=== PATIENT | male | born 1965 | race Hispanic/Latino ===

== ENCOUNTER 2017-12-16 09:53 | Emergency (ER) | payer OTHER, SELFPAY ==
--- NOTE | 2017-12-16 10:51 | RAD REPORT ---
EXAM DESCRIPTION: RAD - Chest Pa And Lat (2 Views) - 12/16/2017 10:45 am CLINICAL HISTORY: Persistent cough COMPARISON: May 2015 TECHNIQUE: PA and lateral views of the chest were obtained. FINDINGS: The lungs are clear of failure, infiltrate or mass. Chronic interstitial lung disease is p resent, mild in degree, and without change from May 2015. Heart size is normal and central vasc ulature is within normal limits. No pleural effusion or pneumothorax seen. No acute bony finding no екатерина. No aortic abnormality. IMPRESSION: No acute cardiopulmonary process. No significant change from 2016.
--- NOTE | 2017-12-16 11:20 | EDPHYS ---
Physician Documentation [facility] Name: John Slater Age: 52 yrs Sex: Male : 1965 Arrival Date: 12/16/2017 Time: 09:57 Bed 23 Private MD: Remy Denny ED Physician Emir Melton HPI: 12/16 11:15 This 52 yrs old Male presents to ER via Ambulatory with complaints of Cough, gs Congestion, Headache. 11:15 The patient or guardian reports cough, that is intermittent, with no sputum, flu gs symptoms, arthralgias, low-grade fever, myalgias, no appetite, sore throat, nasal and sinus congestion. Onset: The symptoms/episode began/occurred gradually. Severity of symptoms: At their worst the symptoms were moderate, in the emergency department the symptoms. Modifying factors: The symptoms are alleviated by nothing, the symptoms are aggravated by nothing. Associated signs and symptoms: Pertinent positives: sore throat, headache. The patient has experienced similar episodes in the past, a few times. Historical: - Allergies: 10:02 No Known Allergies; sv - Home Meds: 10:02 Humalog Sub-Q [Active]; Tresiba FlexTouch U-100 subcutaneous subcutaneous [Active]; sv 10:03 pioglitazone 30 mg Oral tab 1 tab once daily [Active]; Simvastatin Oral [Active]; sv - PMHx: 10:02 Diabetes - IDDM; sv - PSHx: 10:02 eye sx; sv - Immunization history:: Adult Immunizations up to date. - Social history:: Smoking status: Patient/guardian denies using tobacco. - Ebola Screening: : No symptoms or risks identified at this time. ROS: 11:15 All other systems are negative. gs Exam: 11:15 Head/Face: Normocephalic, atraumatic. Eyes: Pupils equal round and reactive to light, gs extra-ocular motions intact. Lids and lashes normal. Conjunctiva and sclera are non-icteric and not injected. Cornea within normal limits. Periorbital areas with no swelling, redness, or edema. Neck: Trachea midline, no thyromegaly or masses palpated, and no cervical lymphadenopathy. Supple, full range of motion without nuchal rigidity, or vertebral point tenderness. No Meningismus. Chest/axilla: Normal chest wall appearance and motion. Nontender with no deformity. No lesions are appreciated. Cardiovascular: Regular rate and rhythm with a normal S1 and S2. No gallops, murmurs, or rubs. Normal PMI, no JVD. No pulse deficits. Respiratory: Lungs have equal breath sounds bilaterally, clear to auscultation and percussion. No rales, rhonchi or wheezes noted. No increased work of breathing, no retractions or nasal flaring. Abdomen/GI: Soft, non-tender, with normal bowel sounds. No distension or tympany. No guarding or rebound. No evidence of tenderness throughout. Back: No spinal tenderness. No costovertebral tenderness. Full range of motion. Skin: Warm, dry with normal turgor. Normal color with no rashes, no lesions, and no evidence of cellulitis. MS/ Extremity: Pulses equal, no cyanosis. Neurovascular intact. Full, normal range of motion. Neuro: Awake and alert, GCS 15, oriented to person, place, time, and situation. Cranial nerves II-XII grossly intact. Motor strength 5/5 in all extremities. Sensory grossly intact. Cerebellar exam normal. Normal gait. 11:15 Constitutional: The patient appears alert, awake, non-toxic. 11:15 ENT: TM's: are normal, Nose: Nasal mucosa: edematous, erythematous, Posterior pharynx: erythema, that is mild. Vital Signs: 10:02 BP 160 / 85; Pulse 95; Resp 18; Temp 99(O); Pulse Ox 96% ; Weight 95.25 kg; Height 6 sv ft. 0 in. (182.88 cm); 11:29 BP 160 / 84; Pulse 89; Resp 19; Pulse Ox 97% on R/A; la1 10:02 Body Mass Index 28.48 (95.25 kg, 182.88 cm) sv MDM: 10:25 Patient medically screened. 11:15 Differential Diagnosis: Influenza Upper Respiratory Infection Sinusitis Pharyngitis gs Viral Syndrome. Data reviewed: vital signs, nurses notes. Response to treatment: the patient's symptoms have mildly improved after treatment, and as a result, I will discharge patient. 12/16 10:26 Order name: Strep; Complete Time: 11:15 12/16 10:26 Order name: Flu; Complete Time: 11: 12/16 10:26 Order name: XRAY Chest Pa And Lat (2 Views); Complete Time: 10:59 gs 12/16 11:06 Order name: Throat Culture EDMS Administered Medications: No medications were administered Disposition: 12/16/17 11:20 Discharged to Home. Impression: Acute upper respiratory infection, unspecified. - Condition is Stable. - Discharge Instructions: Upper Respiratory Infection, Adult. - Prescriptions for Flonase Allergy Relief 50 mcg/actuation Nasal spray,suspension - inhale 2 spray by INTRANASAL route once daily for 7 days; 1 bottle. - Medication Reconciliation Form, Thank You Letter, Antibiotic Education, Prescription Opioid Use form. - Follow up: Private Physician; When: 1 - 2 days; Reason: Re-evaluation by your physician. Signatures: Dispatcher [employer] Mary Paredes RN RN Keenan Morales RN RN la1 Emir Melton MD MD gs Corrections: (The following items were deleted from the chart) 11:29 11:20 12/16/2017 11:20 Discharged to Home. Impression: Acute upper respiratory la1 infection, unspecified. Condition is Stable. Forms are Medication Reconciliation Form, Thank You Letter, Antibiotic Education, Prescription Opioid Use. Follow up: Private Physician; When: 1 - 2 days; Reason: Re-evaluation by your physician.
--- NOTE | 2017-12-16 11:20 | ER ---
Nurse's Notes [facility] Name: John Slater Age: 52 yrs Sex: Male : 1965 Arrival Date: 12/16/2017 Time: 09:57 Bed 23 Private MD: Remy Denny Diagnosis: Acute upper respiratory infection, unspecified Presentation: 12/16 10:00 Presenting complaint: Patient states: sore throat, eye pain, headache, generalized sv weakness, congestion x 1 day. Transition of care: patient was not received from another setting of care. Onset of symptoms was December 15, 2017. Care prior to arrival: None. 10:00 Method Of Arrival: Ambulatory sv 10:00 Acuity: CAMRON 3 sv 10:13 Risk Assessment: Do you want to hurt yourself or someone else? Patient reports no la1 desire to harm self or others. Initial Sepsis Screen: Does the patient meet any 2 criteria? No. Patient's initial sepsis screen is negative. Does the patient have a suspected source of infection? No. Patient's initial sepsis screen is negative. Historical: - Allergies: 10:02 No Known Allergies; sv - Home Meds: 10:02 Humalog Sub-Q [Active]; Tresiba FlexTouch U-100 subcutaneous subcutaneous [Active]; sv 10:03 pioglitazone 30 mg Oral tab 1 tab once daily [Active]; Simvastatin Oral [Active]; sv - PMHx: 10:02 Diabetes - IDDM; sv - PSHx: 10:02 eye sx; sv - Immunization history:: Adult Immunizations up to date. - Social history:: Smoking status: Patient/guardian denies using tobacco. - Ebola Screening: : No symptoms or risks identified at this time. Screenin:12 Abuse screen: Denies threats or abuse. Nutritional screening: No deficits noted. la1 Tuberculosis screening: No symptoms or risk factors identified. Fall Risk None identified. Assessment: 10:11 General: Appears in no apparent distress. comfortable, obese, well nourished, Behavior la1 is calm, cooperative, appropriate for age. Pain: Complains of pain in forehead, right jewish and left jewish, and throat. Cardiovascular: Capillary refill < 3 seconds is brisk in bilateral fingers. Respiratory: Airway is patent Respiratory effort is even, unlabored, Respiratory pattern is regular, symmetrical, Breath sounds are clear bilaterally. GI: Abdomen is round non-distended. : No signs and/or symptoms were reported regarding the genitourinary system. EENT: Tympanic membrane clear on right ear and left ear Throat is clear is pink. Derm: Skin is pink, warm \T\ dry. Vital Signs: 10:02 BP 160 / 85; Pulse 95; Resp 18; Temp 99(O); Pulse Ox 96% ; Weight 95.25 kg; Height 6 sv ft. 0 in. (182.88 cm); 11:29 BP 160 / 84; Pulse 89; Resp 19; Pulse Ox 97% on R/A; la1 10:02 Body Mass Index 28.48 (95.25 kg, 182.88 cm) sv ED Course: 09:57 Patient arrived in ED. mr 09:58 Remy Denny MD is Private Physician. mr 10:01 Triage completed. sv 10:04 Emir Melton MD is Attending Physician. gs 10:10 Keenan Morales RN is Primary Nurse. la1 10:11 Arm band placed on right wrist. la1 10:13 Placed in gown. Bed in low position. Call light in reach. la1 10:31 Flu Sent. la1 10:31 Strep Sent. la1 10:43 X-ray completed. Patient tolerated procedure well. Patient moved back from radiology. jb2 10:44 XRAY Chest Pa And Lat (2 Views) In Process Unspecified. EDMS 11:28 No provider procedures requiring assistance completed. Patient did not have IV access la1 during this emergency room visit. Administered Medications: No medications were administered Outcome: 11:20 Discharge ordered by . gs 11:29 Discharged to home ambulatory. la1 11:29 Condition: stable 11:29 Discharge instructions given to patient, Instructed on discharge instructions, follow up and referral plans. medication usage, Demonstrated understanding of instructions, follow-up care, medications, Prescriptions given X 1. 11:29 Patient left the ED. la1 Signatures: Dispatcher [employer] EDMS Mary Samuel RN RN sv Rivera, Maria Nicholas Mcnally jb2 Keenan Morales RN RN laEmir Flores MD MD gs Corrections: (The following items were deleted from the chart) 10:03 10:02 BP 160 / 85; Pulse 95bpm; Resp 18bpm; Pulse Ox 96%; 95.25 kg; Height 6 ft. 0 in.; sv BMI: 28.4; sv
== END 2017-12-16 11:29 | disposition home or self-care (01) ==
LOC: ER 09:53
DX: J06.9 Acute upper respiratory infection, unspecified (principal); E11.9 Type 2 diabetes mellitus without complications; Z79.4 Long term (current) use of insulin
CPT/HCPCS: 71046; 87070; 87081; 87804; 99283

== ENCOUNTER 2019-06-12 14:03 | Emergency (ER) | payer OTHER, SELFPAY ==
[2019-06-12 15:42] LABS: Absolute Lymphocytes (CBC) 1.4 K/uL (0.7-4.9); Basophils % 0.3 % (0-1.3); Hematocrit 46.2 % (39.6-49.0); Lymphocytes % 11.1 % (15.3-44.8); MPV 9.3 fL (7.6-11.3); RBC Red Blood Cell Count 5.08 M/uL (4.33-5.43)
[2019-06-12] MEDS ORDERED: NA CHLORIDE 0.9% 1,000 ML ONE (15:42)
[2019-06-12] MEDS ORDERED: MORPHINE 4 MG/ML SYR ONE ×2 (15:42→19:18)
[2019-06-12] MEDS ORDERED: ONDANSETRON 4 MG/2 ML VIAL ONE (15:42)
--- OUTSIDE RECORDS SUMMARY | 2019-06-12 15:49 | XMS REPORT ---
:1965 Author Organization [facility] Address [address] [place] [address] [address] [place] [address] Care Team Providers Name Role Phone Unavailable Unavailable Unavailable Problems This patient has no known problems. Allergies, Adverse Reactions, Alerts This patient has no known allergies or adverse reactions. Medications This patient has no known medications.
[2019-06-12 15:55] LABS: Albumin 3.7 g/dL (3.4-5.0); Bilirubin Direct 0.1 mg/dL (0-0.2); Bilirubin Total 0.5 mg/dL (0.2-1.0); Potassium 3.9 mmol/L (3.5-5.1); Protein, Total 7.6 g/dL (6.4-8.2)
--- NOTE | 2019-06-12 16:45 | RAD REPORT ---
EXAM DESCRIPTION: CT - Abdomen Pelvis W Contrast - 06/12/2019 4:33 pm CLINICAL HISTORY: Abdominal pain COMPARISON: none. TECHNIQUE: Computed axial tomography of the abdomen pelvis was obtained. 100 cc Isovue-300 was admin istered intravenously. Oral contrast was not requested which limits evaluation of bowel. All CT scans are performed using dose optimization technique as appropriate and may include automated exposure control or mA/KV adjustment according to patient size. FINDINGS: The liver, spleen, pancreas, adrenal and kidneys appear unremarkable. There is no evidence of diverticulitis. Normal appendix Fluid is present within nondilated small bowel . The prostate gland is moderately enlarged. Small rig ht inguinal hernia contains fat. Bladder is mildly distended Two dense structures are present within the cecum. Largest measures 12 millimeters IMPRESSION: Two dense structures within the cecum presumably enteroliths. Fluid within nondilated small bowel may indicate an enteritis Mild bladder distention
[2019-06-12 18:40] LABS: Urine Bacteria NONE SEEN /HPF (NONE SEEN); Urine Culture Reflex Order NOT NEEDED; Urine RBC <5 /HPF (NONE SEEN)
[2019-06-12 18:56] LABS: Urine Blood NEGATIVE (NEG); Urine Glucose 2+ (NEG); Urine Protein NEGATIVE (NEG); Urine pH 7.5 (5.0-7.0)
--- NOTE | 2019-06-12 19:24 | ER ---
Nurse's Notes [facility] Name: John Slater Age: 53 yrs Sex: Male : 1965 Arrival Date: 06/12/2019 Time: 14:06 Bed 14 Private MD: Diagnosis: Unspecified abdominal pain;Enteritis Presentation: 06/12 14:14 Acuity: CAMRON 3 dm5 14:14 Presenting complaint: Patient states: pain in the lower abdominal. 19:15 Transition of care: patient was not received from another setting of care. Onset of ea symptoms was June 12, 2019. Risk Assessment: Do you want to hurt yourself or someone else? Patient reports no desire to harm self or others. Initial Sepsis Screen: Does the patient meet any 2 criteria? No. Patient's initial sepsis screen is negative. Does the patient have a suspected source of infection? No. Patient's initial sepsis screen is negative. Care prior to arrival: None. 19:15 Method Of Arrival: Ambulatory ea Historical: - Allergies: 14:16 No Known Allergies; dm5 - PMHx: 14:16 Diabetes - IDDM; dm5 - PSHx: 14:16 eye sx; dm5 - Immunization history:: Adult Immunizations not up to date. - Coronavirus screen:: The patient has NOT traveled to [place], [place], or [place] in the past 14 days. The patient has NOT had contact with known/suspected case of Coronavirus?. - Social history:: Smoking status: . - Ebola Screening: : No symptoms or risks identified at this time. Screenin:00 Abuse screen: Denies threats or abuse. Denies injuries from another. Nutritional jl7 screening: No deficits noted. Tuberculosis screening: No symptoms or risk factors identified. Fall Risk IV access (20 points). Total Saleem Fall Scale indicates No Risk (0-24 pts). Assessment: 15:20 General: Appears in no apparent distress. uncomfortable, Behavior is calm, cooperative, jl7 appropriate for age. Pain: Complains of pain in right lower quadrant and left lower quadrant Pain does not radiate. Pain currently is 8 out of 10 on a pain scale. Quality of pain is described as aching, crampy, Pain began 1 day ago. Is intermittent. Neuro: Level of Consciousness is awake, alert, obeys commands, Oriented to person, place, time, situation. Cardiovascular: Patient's skin is warm and dry. Respiratory: Airway is patent Respiratory effort is even, unlabored, Respiratory pattern is regular, symmetrical. GI: Bowel sounds present X 4 quads. Abd is soft Abdomen is tender to palpation Reports diarrhea, nausea, vomiting. : No signs and/or symptoms were reported regarding the genitourinary system. EENT: No signs and/or symptoms were reported regarding the EENT system. Derm: Skin is pink, warm \T\ dry. Musculoskeletal: No signs and/or symptoms reported regarding the musculoskeletal system. 16:00 Reassessment: Patient appears in no apparent distress at this time. Patient and/or [facility] family updated on plan of care and expected duration. Pain level reassessed. Patient is alert, oriented x 3, equal unlabored respirations, skin warm/dry/pink. Pain rated 4/10. 17:00 Reassessment: Patient appears in no apparent distress at this time. No changes from [facility] previously documented assessment. Patient and/or family updated on plan of care and expected duration. Pain level reassessed. Patient is alert, oriented x 3, equal unlabored respirations, skin warm/dry/pink. 18:00 Reassessment: Patient appears in no apparent distress at this time. No changes from [facility] previously documented assessment. Patient and/or family updated on plan of care and expected duration. Pain level reassessed. Patient is alert, oriented x 3, equal unlabored respirations, skin warm/dry/pink. 19:30 General: Appears in no apparent distress. Behavior is calm, cooperative, appropriate ea for age. Pain: Complains of pain in abdomen and left lower quadrant and right lower quadrant. Neuro: Level of Consciousness is awake, alert, obeys commands, Oriented to person, place, time, situation. Respiratory: Airway is patent Respiratory effort is even, unlabored, Respiratory pattern is regular, symmetrical. Derm: Skin is pink, warm \T\ dry. 20:24 Reassessment: Patient appears in no apparent distress at this time. Patient is alert, rr5 oriented x 3, equal unlabored respirations, skin warm/dry/pink. discharge instruction given and explained without complaints made, verbalized understading. Patient states feeling better. Patient states symptoms have improved. Pain: Pain currently is 4 out of 10 on a pain scale. Vital Signs: 14:14 Pulse 67; Resp 18; Temp 97.8; Pulse Ox 100% on R/A; Pain 8/10; sg 14:14 BP 192 / 99; sg 15:25 BP 183 / 86; Pulse 61; Resp 15; Pulse Ox 99% ; Pain 8/10; jl7 16:30 BP 186 / 94; Pulse 57; Resp 17 S; Pulse Ox 99% on R/A; Pain 4/10; jl7 18:00 BP 174 / 85; Pulse 70; Resp 16 S; Pulse Ox 99% on R/A; Pain 8/10; jl7 20:20 BP 146 / 69; Pulse 69; Resp 17; Temp 98; Pulse Ox 99% on R/A; rr5 ED Course: 14:06 Patient arrived in ED. mr 14:14 Triage completed. dm5 14:17 Arm band placed on. dm5 15:06 Indra Isaac, DARREL is PHCP. pm1 15:06 Gonzalez Flynn MD is Attending Physician. pm1 15:20 Patient has correct armband on for positive identification. Placed in gown. Bed in low jl7 position. Call light in reach. Side rails up X 1. Pulse ox on. NIBP on. Warm blanket given. 15:25 Initial lab(s) drawn, by me, sent to lab. Inserted saline lock: 20 gauge in right dh3 forearm, using aseptic technique. Blood collected. 15:31 Lauren Bee, AVELINA is Primary Nurse. jl7 16:17 CT Abd/Pelvis - IV Contrast Only In Process Unspecified. EDMS 18:33 Urine collected: clean catch specimen, clear. dh3 20:25 No provider procedures requiring assistance completed. IV discontinued, intact, rr5 bleeding controlled, No redness/swelling at site. Pressure dressing applied. Administered Medications: 15:30 Drug: NS 0.9% 1000 ml Route: IV; Rate: 1000 ml; Site: right forearm; jl7 16:15 Follow up: Response: No adverse reaction; IV Status: Completed infusion; IV Intake: jl7 1000ml 15:31 Drug: Zofran 4 mg Route: IVP; Site: right forearm; jl7 16:00 Follow up: Response: No adverse reaction jl7 15:34 Drug: morphine 4 mg Route: IVP; Site: right forearm; jl7 16:00 Follow up: Response: No adverse reaction; Pain is decreased jl7 19:20 Drug: morphine 4 mg Route: IVP; Site: right antecubital; ea 20:20 Follow up: Response: No adverse reaction; Pain is decreased; RASS: Alert and Calm (0) rr5 19:41 Drug: Cipro 500 mg Route: PO; ea 20:28 Follow up: Response: No adverse reaction rr5 19:41 Drug: Flagyl 500 mg Volume: 100 ml; Route: IVPB; Rate: 200 ml/hr; Infused Over: 30 ea mins; Site: right antecubital; 20:15 Follow up: Response: No adverse reaction; IV Status: Completed infusion; IV Intake: rr5 100ml 19:41 Drug: Bentyl 20 mg Route: PO; ea 20:27 Follow up: Response: No adverse reaction rr5 Intake: 16:15 IV: 1000ml; Total: 1000ml. jl7 20:15 IV: 100ml; Total: 1100ml. rr5 Outcome: 19:24 Discharge ordered by MD. pm1 20:25 Discharged to home ambulatory. rr5 20:25 Condition: stable 20:25 Discharge instructions given to patient, Instructed on discharge instructions, follow up and referral plans. medication usage, Demonstrated understanding of instructions, follow-up care, medications, Prescriptions given X 4. 20:33 Patient left the ED. rr5 Signatures: Dispatcher [employer] EDMS Elaine Mcallister RN RN dm5 Santos Christianson RN Allie Rivas mr IsaacIndra, WEB DESIGN SPECIALIST WEB DESIGN SPECIALIST pm1 Lauren Bee RN RN jl7 Kristin Ackerman 3 Josette Oakes RN RN ea Roque, Raymond RN RN rr5
--- NOTE | 2019-06-12 19:25 | EDPHYS ---
Physician Documentation [facility] Name: John Slater Age: 53 yrs Sex: Male : 1965 Arrival Date: 06/12/2019 Time: 14:06 Bed 14 Private MD: ED Physician Gonzalez Flynn HPI: 06/12 16:00 This 53 yrs old Male presents to ER via Unassigned with complaints of pm1 Abdominal Pain, Nausea. 16:00 The patient presents with abdominal pain Suprapubic area. Onset: The symptoms/episode pm1 began/occurred this morning. The symptoms do not radiate. Associated signs and symptoms: Pertinent positives: Nausea with one episode of vomiting, Pertinent negatives: chest pain, constipation, diarrhea, dysuria, fever, shortness of breath. The symptoms are described as crampy. Modifying factors: The symptoms are alleviated by nothing, the symptoms are aggravated by nothing. Severity of pain: in the emergency department the pain is actually worse. The patient has not experienced similar symptoms in the past. Historical: - Allergies: 14:16 No Known Allergies; dm5 - PMHx: 14:16 Diabetes - IDDM; dm5 - PSHx: 14:16 eye sx; dm5 - Immunization history:: Adult Immunizations not up to date. - Coronavirus screen:: The patient has NOT traveled to [place], [place], or [place] in the past 14 days. The patient has NOT had contact with known/suspected case of Coronavirus?. - Social history:: Smoking status: . - Ebola Screening: : No symptoms or risks identified at this time. ROS: 16:00 Constitutional: Negative for fever, chills, and weight loss, Eyes: Negative for injury, pm1 pain, redness, and discharge, ENT: Negative for injury, pain, and discharge, Neck: Negative for injury, pain, and swelling, Cardiovascular: Negative for chest pain, palpitations, and edema, Respiratory: Negative for shortness of breath, cough, wheezing, and pleuritic chest pain. 16:00 Back: Negative for injury and pain, : Negative for injury, bleeding, discharge, and swelling, MS/Extremity: Negative for injury and deformity, Skin: Negative for injury, rash, and discoloration, Neuro: Negative for headache, weakness, numbness, tingling, and seizure. 16:00 Abdomen/GI: Positive for abdominal pain, nausea and vomiting, of the suprapubic area, Negative for diarrhea, constipation. Exam: 16:00 Constitutional: This is a well developed, well nourished patient who is awake, alert, pm1 and in no acute distress. Head/Face: Normocephalic, atraumatic. Neck: Trachea midline, no thyromegaly or masses palpated, and no cervical lymphadenopathy. Supple, full range of motion without nuchal rigidity, or vertebral point tenderness. No Meningismus. Chest/axilla: Normal chest wall appearance and motion. Nontender with no deformity. No lesions are appreciated. Cardiovascular: Regular rate and rhythm with a normal S1 and S2. No gallops, murmurs, or rubs. Normal PMI, no JVD. No pulse deficits. Respiratory: Lungs have equal breath sounds bilaterally, clear to auscultation and percussion. No rales, rhonchi or wheezes noted. No increased work of breathing, no retractions or nasal flaring. 16:00 Back: No spinal tenderness. No costovertebral tenderness. Full range of motion. Skin: Warm, dry with normal turgor. Normal color with no rashes, no lesions, and no evidence of cellulitis. MS/ Extremity: Pulses equal, no cyanosis. Neurovascular intact. Full, normal range of motion. 16:00 Abdomen/GI: Inspection: obese insulin pump present to right lower quadrant, Bowel sounds: normal, Palpation: soft, mild abdominal tenderness, in the suprapubic area, mass, is not appreciated, rebound tenderness, is not appreciated. 16:00 Neuro: Orientation: is normal, Mentation: is normal, Motor: is normal, moves all fours. Vital Signs: 14:14 Pulse 67; Resp 18; Temp 97.8; Pulse Ox 100% on R/A; Pain 8/10; sg 14:14 BP 192 / 99; sg 15:25 BP 183 / 86; Pulse 61; Resp 15; Pulse Ox 99% ; Pain 8/10; jl7 16:30 BP 186 / 94; Pulse 57; Resp 17 S; Pulse Ox 99% on R/A; Pain 4/10; jl7 18:00 BP 174 / 85; Pulse 70; Resp 16 S; Pulse Ox 99% on R/A; Pain 8/10; jl7 20:20 BP 146 / 69; Pulse 69; Resp 17; Temp 98; Pulse Ox 99% on R/A; rr5 MDM: 15:09 Patient medically screened. pm1 16:03 Data reviewed: vital signs. Data interpreted: Pulse oximetry: on room air is 100 %. pm1 Interpretation: normal. 19:20 Counseling: I had a detailed discussion with the patient and/or guardian regarding: the pm1 historical points, exam findings, and any diagnostic results supporting the discharge/admit diagnosis, lab results, radiology results, the need for outpatient follow up, to return to the emergency department if symptoms worsen or persist or if there are any questions or concerns that arise at home. 19:34 ED course: had colonscopy 2 years ago, discussed findings and recommended follow up pm1 with his GI doctor for a conlonscopy. 06/12 15:14 Order name: Basic Metabolic Panel [facility] 06/12 15:14 Order name: CBC with Diff; Complete Time: 16:00 pm 06/12 15:14 Order name: Creatinine for Radiology; Complete Time: 16:00 pm 06/12 15:14 Order name: Hepatic Function; Complete Time: 16:00 pm1 06/12 15:14 Order name: Lipase; Complete Time: 16:00 [facility] 06/12 15:15 Order name: Basic Metabolic Panel; Complete Time: 16:00 [facility] 06/12 15:14 Order name: CT Abd/Pelvis - IV Contrast Only; Complete Time: 17:01 pm1 06/12 17:59 Order name: Urine Microscopic Only [facility] 06/12 18:00 Order name: Urine Microscopic Only [facility] 06/12 18:51 Order name: Urine Dipstick--Ancillary (enter results); Complete Time: 19:08 06/12 15:14 Order name: IV Saline Lock; Complete Time: 15:32 pm1 06/12 15:14 Order name: Labs collected and sent; Complete Time: 15:32 pm 06/12 17:59 Order name: Urine Dipstick-Ancillary (obtain specimen); Complete Time: 18:32 pm1 Administered Medications: 15:30 Drug: NS 0.9% 1000 ml Route: IV; Rate: 1000 ml; Site: right forearm; jl7 16:15 Follow up: Response: No adverse reaction; IV Status: Completed infusion; IV Intake: jl7 1000ml 15:31 Drug: Zofran 4 mg Route: IVP; Site: right forearm; jl7 16:00 Follow up: Response: No adverse reaction jl7 15:34 Drug: morphine 4 mg Route: IVP; Site: right forearm; jl7 16:00 Follow up: Response: No adverse reaction; Pain is decreased jl7 19:20 Drug: morphine 4 mg Route: IVP; Site: right antecubital; ea 20:20 Follow up: Response: No adverse reaction; Pain is decreased; RASS: Alert and Calm (0) rr5 19:41 Drug: Cipro 500 mg Route: PO; ea 20:28 Follow up: Response: No adverse reaction rr5 19:41 Drug: Flagyl 500 mg Volume: 100 ml; Route: IVPB; Rate: 200 ml/hr; Infused Over: 30 ea mins; Site: right antecubital; 20:15 Follow up: Response: No adverse reaction; IV Status: Completed infusion; IV Intake: rr5 100ml 19:41 Drug: Bentyl 20 mg Route: PO; ea 20:27 Follow up: Response: No adverse reaction rr5 Disposition: 06/12/19 19:24 Discharged to Home. Impression: Unspecified abdominal pain, Enteritis. - Condition is Stable. - Discharge Instructions: Abdominal Pain, Adult. - Prescriptions for Bentyl 20 mg Oral Tablet - take 1 tablet by ORAL route every 6 hours As needed; 20 tablet. Flagyl 500 mg Oral Tablet - take 1 tablet by ORAL route every 8 hours for 10 days; 30 tablet. Cipro 500 mg Oral Tablet - take 1 tablet by ORAL route every 12 hours for 10 days; 20 tablet. Zofran 4 mg Oral Tablet - take 1 tablet by ORAL route every 8 hours As needed; 20 tablet. - Medication Reconciliation Form, Thank You Letter, Antibiotic Education, Prescription Opioid Use, Work release form form. - Follow up: Emergency Department; When: As needed; Reason: Worsening of condition. Follow up: Private Physician; When: 2 - 3 days; Reason: Recheck today's complaints, Continuance of care, Re-evaluation by your physician. - Problem is new. - Symptoms have improved. Addendum: 06/16/2019 07:48 Co-signature as Attending Physician, Gonzalez strickland Signatures: Dispatcher [employer] Elaine Catalan, RN RN dm5 Gonzalez Flynn MD MD rn Marinas, Patrick, MACHINE MAINTENANCE MACHINE MAINTENANCE pm1 Lauren Bee, RN RN jl7 Josette Oakes, RN RN Samir Cabrera, RN RN rr5 Corrections: (The following items were deleted from the chart) 06/12 19:24 19:24 06/12/2019 19:24 Discharged to Home. Impression: Unspecified abdominal pain. pm1 Condition is Stable. Forms are Medication Reconciliation Form, Thank You Letter, Antibiotic Education, Prescription Opioid Use. Follow up: Emergency Department; When: As needed; Reason: Worsening of condition. Follow up: Private Physician; When: 2 - 3 days; Reason: Recheck today's complaints, Continuance of care, Re-evaluation by your physician. Problem is new. Symptoms have improved. pm1 20:33 19:24 06/12/2019 19:24 Discharged to Home. Impression: Unspecified abdominal pain; rr5 Enteritis. Condition is Stable. Forms are Medication Reconciliation Form, Thank You Letter, Antibiotic Education, Prescription Opioid Use. Follow up: Emergency Department; When: As needed; Reason: Worsening of condition. Follow up: Private Physician; When: 2 - 3 days; Reason: Recheck today's complaints, Continuance of care, Re-evaluation by your physician. Problem is new. Symptoms have improved. pm1
[2019-06-12] MEDS ORDERED: DICYCLOMINE HCL 10 MG CAP ONE (19:38)
[2019-06-12] MEDS ORDERED: CIPROFLOXACIN HCL 500 MG TAB ONE (19:38)
[2019-06-12] MEDS ORDERED: METRONIDAZOLE 500mg IVPB 500 MG/100 ML BAG IV ONE (19:38)
== END 2019-06-12 20:33 | disposition home or self-care (01) ==
LOC: ER 14:03
DX: K52.9 Noninfective gastroenteritis and colitis, unspecified (principal)
CPT/HCPCS: 36415; 74177; 80048; 80076; 81003; 81015; 83690; 85025; 96361; 96365; 96375; 99284; J2405; J7030; Q9967

== ENCOUNTER 2022-10-12 14:03 | Emergency (ER) | payer OTHER ==
--- OUTSIDE RECORDS SUMMARY | 2022-10-12 14:08 | XMS REPORT | Continuity of Care Document ---
:1965 Author Organization [facility] t Address [address] [facility] [place]. [address] [place] [address] Care Team Providers Name Role Phone AUBREY SALINSA Primary Care Physician Unavailable Nathan Attending Clinician Unavailable TONI CRUZ Attending Clinician Unavailable SERVANDO JOHNS Attending Clinician Unavailable PAZ DUNN Attending Clinician Unavailable YVROSE JETT Attending Clinician Unavailable Nathan Admitting Clinician Unavailable TONI CRUZ Admitting Clinician Unavailable PAZ DUNN Admitting Clinician Unavailable ROX GOODEN Admitting Clinician Unavailable Payers Payer Name Policy Type Policy Number Effective Date Expiration Date S zeann marie BS OF [place] - OUT [id number] 2019 OF [facility] 00:00:00 [facility] [id number] [facility] [id number] 2019 00:00:00 Problems Condition Condition Condition Status Onset Resolution Last Treating Co mments Source Name Details Category Date Date Treatment Clinician Date Hyperlipid Hyperlipid Problem Active 2021-05 [facility] emia emia 06-03 Family 00:00: Practic 00 e Insulin Insulin Problem Active 2021-[address] [facility] pump Pump 06-03 Family present Present 00:00: Practic 00 e Long-term Long-term Problem Active 2021-05 Delfina sandra current Current 06-03 Family use of Use of 00:00: Practic insulin Insulin 00 e Type 1 Type 1 Problem Active [facility] diabetes Diabetes 8-31 Family mellitus Mellitus 00:00: Practi c 00 e Upper Upper Problem Active [facility] respirator Respirator 8-31 Fa stephanie y y 00:00: Practic infection Infection 00 e Overweight Overweight Problem Active [facility] 9-10 Family 00:00: Practic 00 e Clinical Clinical Problem Active Loera ge finding Finding 5-03 Family 00:00: Practic 00 e Obesity Obesity Problem Active [facility] 5-03 Family 00:00: Practic 00 e Influenza Influenza Problem Active Delfina flores vaccinatio Vaccinatio 3-08 Fa stephanie n status n Status 00:00: Practi c 00 e Type 1 Type 1 Problem Active [facility] diabetes Diabetes 7-21 Family mellitus Mellitus 00:00: Practi c without without 00 e complicati Complicati on on Clinical Clinical Problem Active Loera ge finding Finding 7-21 Family 00:00: Practic 00 e Family Family Problem Active [facility] history of History of 6-20 Fa stephanie diabetes Diabetes 00:00: Practi c mellitus Mellitus 00 e Allergies, Adverse Reactions, Alerts Allergy Allergy Status Severity Reaction(s) Onset Inactive Treating Comm ents Source Name Type Date Date Clinician NO KNOWN Drug Active [facility] ALLERGIE Class ity of [facility] Medications Ordered Filled Start Stop Current Ordering Indication Dosage Frequency Signature Comments Components Source Medication Medication Date Date Medication? Clinician (SIG) Name Name LisaKavitaHoang MckeonuCuca No Mikeu-Hoang [facility] Guide test Guide test Guide test Family strips USE strips USE strips USE Practic 5 STRIPS 5 STRIPS 5 STRIPS e EVERY DAY EVERY DAY EVERY DAY aspirin 81 aspirin 81 No aspirin 81 Village mg mg mg Family tablet,daniela tablet,daniela tablet,del Practic yed release yed release ayed e TAKE 1 TAKE 1 release TABLET BY TABLET BY TAKE 1 MOUTH EVERY MOUTH EVERY TABLET BY DAY DAY MOUTH EVERY DAY atorvastati atorvastati No 1 Q1D atorvastat [facility] n 10 mg n 10 mg in 10 mg Famil y tablet Take tablet Take tablet Practic 1 tablet 1 tablet Take 1 e every day every day tablet by oral by oral every day route in route in by oral the evening the evening route in for 30 for 30 the days. days. evening for 30 days. BD Ambreen 2nd BD Ambreen 2nd No BD Ambreen [place] Gen Pen Gen Pen 2nd Gen Family Needle 32 Needle 32 Pen Needle Practic gauge x gauge x 32 gauge x e " USE " USE " USE FOUR TIMES FOUR TIMES FOUR TIMES DAILY DAILY DAILY DIRECTED DIRECTED DIRECTED INCASE OF INCASE OF INCASE OF PUMP PUMP PUMP FAILURE FAILURE FAILURE Contour Contour No Contour Villag e Next Test Next Test Next Test Family Strips Strips Strips Practic e FreeStyle FreeStyle No FreeStyle [facility] Margy 14 Margy 14 Margy 14 Fam jong Day [place] Day [place] Day [place] Practic as directed as directed as e directed FreeStyle FreeStyle No FreeStyle [facility] Margy 14 Margy 14 Margy 14 Fam jong Day Sensor Day Sensor Day Sensor Practic e FreeStyle FreeStyle No FreeStyle [facility] Margy 2 Margy 2 Margy 2 Family Sensor kit Sensor kit Sensor kit Practic USE USE USE e DIRECTED DIRECTED DIRECTED Humalog Humalog No Humalog [facility] KwikPen KwikPen KwikPen Family (U-100) (U-100) (U-100) Practi c Insulin 100 Insulin 100 Insulin e unit/mL unit/mL 100 subcutaneou subcutaneou unit/mL s Use s Use subcutaneo before before us Use meals in meals in before case of case of meals in pump pump case of failure failure pump using ICR using ICR failure 1:5; CF 1:5; CF using ICR 1:40: TDD 1:40: TDD 1:5; CF 50 50 1:40: TDD 50 Humalog Humalog No Humalog Vill[facility] e U-100 U-100 U-100 Family Insulin 100 Insulin 100 Insulin Practic unit/mL unit/mL 100 e subcutaneou subcutaneou unit/mL s solution s solution subcutaneo USE WITH USE WITH us INSULIN INSULIN solution PUMP DAILY PUMP DAILY USE WITH TOTAL DAILY TOTAL DAILY INSULIN DOSE OF 130 DOSE OF 130 PUMP DAILY UNITS UNITS TOTAL DAILY DOSE OF 130 UNITS levothyroxi levothyroxi No 1 Q[address]D [address] [facility] ne 88 mcg ne 88 mcg ine 88 mcg Family tablet Take tablet Take tablet Practic 1 tablet 1 tablet Take 1 e every day every day tablet by oral by oral every day route in route in by oral the morning the morning route in for 30 for 30 the days. days. morning for 30 days. meloxicam meloxicam meloxicam [facility] 15 mg 15 mg 15 mg Family tablet TAKE tablet TAKE tablet Practic 1 TABLET BY 1 TABLET BY TAKE 1 e MOUTH EVERY MOUTH EVERY TABLET BY DAY DAY MOUTH EVERY DAY simvastatin simvastatin No simPSE&G [facility] 5 mg tablet 5 mg tablet n 5 mg Family TAKE 1 TAKE 1 tablet Practic TABLET BY TABLET BY TAKE 1 e MOUTH EVERY MOUTH EVERY TABLET BY DAY AT DAY AT MOUTH BEDTIME BEDTIME EVERY DAY AT BEDTIME Tresiba Tresiba No Tresiba [facility] e FlexTouch FlexTouch FlexTouch Family U-200 U-200 U-200 Practic insulin 200 insulin 200 insulin e unit/mL (3 unit/mL (3 200 mL) mL) unit/mL (3 subcutaneou subcutaneou mL) s pen s pen subcutaneo INJECT 24 INJECT 24 us pen UNITS UNDER UNITS UNDER INJECT 24 THE SKIN IN THE SKIN IN UNITS THE MORNING THE MORNING UNDER THE IN CAPSULAS IN CAPSULAS SKIN IN OF PUMP OF PUMP THE FAILURE AND FAILURE AND MORNING IN INCREAS INCREAS CAPSULAS DIRECTED( DIRECTED( OF PUMP TOTAL DAILY TOTAL DAILY FAILURE DOSE: 50 DOSE: 50 AND UNITS) UNITS) INCREAS DIRECTED( TOTAL DAILY DOSE: 50 UNITS) Accu-Chek Accu-Chek No Accu-Chek [facility] Guide test Guide test Guide test Family strips USE strips USE strips USE Practic 5 STRIPS 5 STRIPS 5 STRIPS e EVERY DAY EVERY DAY EVERY DAY amoxicillin amoxicillin No amoxicilli [facility] [phone] Family mg-potassiu mg-potassiu mg-potassi Practic m m um e clavulanate clavulanate clavulanat 125 mg 125 mg e 125 mg tablet TAKE tablet TAKE tablet 1 TABLET BY 1 TABLET BY TAKE 1 MOUTH EVERY MOUTH EVERY TABLET BY 12 HOURS 12 HOURS MOUTH FOR 10 DAYS FOR 10 DAYS EVERY 12 HOURS FOR 10 DAYS aspirin 81 aspirin 81 No aspirin 81 Village mg mg mg Family tablet,daniela tablet,daniela tablet,del Practic yed release yed release ayed e TAKE 1 TAKE 1 release TABLET BY TABLET BY TAKE 1 MOUTH EVERY MOUTH EVERY TABLET BY DAY DAY MOUTH EVERY DAY [facility] n 10 mg in 10 mg Famil y tablet TAKE tablet TAKE tablet Practic 1 TABLET BY 1 TABLET BY TAKE 1 e MOUTH EVERY MOUTH EVERY TABLET BY DAY IN THE DAY IN THE MOUTH EVENING EVENING EVERY DAY IN THE EVENING BD Ambreen 2nd BD Ambreen 2nd No BD Ambreen [place] Gen Pen Gen Pen 2nd Gen Family Needle 32 Needle 32 Pen Needle Practic gauge x gauge x 32 gauge x e " USE " USE " USE FOUR TIMES FOUR TIMES FOUR TIMES DAILY DAILY DAILY DIRECTED DIRECTED DIRECTED INCASE OF INCASE OF INCASE OF PUMP PUMP PUMP FAILURE FAILURE FAILURE bromphenira bromphenira No bromphenir [place] mine-pseudo mine-pseudo amine-pseu Family ephedrine-D ephedrine-D doephedrin Practic M 2 mg-30 M 2 mg-30 e-DM 2 e mg-10 mg/5 mg-10 mg/5 mg-30 mL oral mL oral mg-10 mg/5 syrup TAKE syrup TAKE mL oral 5 ML BY 5 ML BY syrup TAKE MOUTH EVERY MOUTH EVERY 5 ML BY 6 HOURS 6 HOURS MOUTH NEEDED NEEDED EVERY 6 HOURS NEEDED Contour Contour No Contour Villag e Next Test Next Test Next Test Family Strips Strips Strips Practic e FreeStyle FreeStyle No FreeStyle [facility] Margy 14 Margy 14 Margy 14 Fam jong Day Sensor Day Sensor Day Sensor Practic e Humalog Humalog No Humalog [facility] [facility] KwikPen KwhaiderPen ElliotikPen Family (U-100) (U-100) (U-100) Practi c Insulin 100 Insulin 100 Insulin e unit/mL unit/mL 100 subcutaneou subcutaneou unit/mL s Use s Use subcutaneo before before us Use meals in meals in before case of case of meals in pump pump case of failure failure pump using ICR using ICR failure 1:5; CF 1:5; CF using ICR 1:40: TDD 1:40: TDD 1:5; CF 50 50 1:40: TDD 50 Humalog Humalog No Humalog Vill[facility] e U-100 U-100 U-100 Family Insulin 100 Insulin 100 Insulin Practic unit/mL unit/mL 100 e subcutaneou subcutaneou unit/mL s solution s solution subcutaneo USe with USe with us insulin insulin solution pump daily: pump daily: USe with TDD 130 TDD 130 insulin pump daily: TDD 130 levothyroxi levothyroxi No 1 Q1D levothyrox [facility] ne 88 mcg ne 88 mcg ine 88 mcg Family tablet Take tablet Take tablet Practic 1 tablet 1 tablet Take 1 e every day every day tablet by oral by oral every day route in route in by oral the morning the morning route in for 30 for 30 the days. days. morning for 30 days. meloxicam meloxicam No meloxicam [facility] 15 mg 15 mg 15 mg Family tablet TAKE tablet TAKE tablet Practic 1 TABLET BY 1 TABLET BY TAKE 1 e MOUTH EVERY MOUTH EVERY TABLET BY DAY DAY MOUTH EVERY DAY Omnipod 5 Omnipod 5 No Omnipod [address] [facility] G6 Intro G6 Intro G6 Intro Fam jong Kit (Gen 5) Kit (Gen 5) Kit (Gen Practic subcutaneou subcutaneou 5) e s cartridge s cartridge subcutaneo with with us controller controller cartridge with controller prednisone prednisone No prednisone [facility] 5 mg tablet 5 mg tablet 5 mg F amily TAKE 1 TAKE 1 tablet Practic TABLET BY TABLET BY TAKE 1 e MOUTH TWICE MOUTH TWICE TABLET BY DAILY FOR 5 DAILY FOR 5 MOUTH DAYS DAYS TWICE DAILY FOR 5 DAYS simvastatin simvastatin No simvastati [facility] 5 mg tablet 5 mg tablet n 5 mg Family TAKE 1 TAKE 1 tablet Practic TABLET BY TABLET BY TAKE 1 e MOUTH EVERY MOUTH EVERY TABLET BY DAY AT DAY AT MOUTH BEDTIME BEDTIME EVERY DAY AT BEDTIME Tresiba Tresiba No Tresiba [facility] FlexTouch FlexTouch FlexTouch Family U-200 U-200 U-200 Practic insulin 200 insulin 200 insulin e unit/mL (3 unit/mL (3 200 mL) mL) unit/mL (3 subcutaneou subcutaneou mL) s pen s pen subcutaneo INJECT 24 INJECT 24 us pen UNITS UNDER UNITS UNDER INJECT 24 THE SKIN IN THE SKIN IN UNITS THE MORNING THE MORNING UNDER THE IN CAPSULAS IN CAPSULAS SKIN IN OF PUMP OF PUMP THE FAILURE AND FAILURE AND MORNING IN INCREAS INCREAS CAPSULAS DIRECTED( DIRECTED( OF PUMP TOTAL DAILY TOTAL DAILY FAILURE DOSE: 50 DOSE: 50 AND UNITS) UNITS) INCREAS DIRECTED( TOTAL DAILY DOSE: 50 UNITS) Accu-Chek Accu-Chek No 5strip( Q1D Accu-Chek [facility] Guide test Guide test s) Guide test Family strips Take strips Take strips Practic 5 strips 5 strips Take 5 e every day every day strips by miscell. by miscell. every day route for route for by 90 days. 90 days. miscell. route for 90 days. aspirin 81 aspirin 81 No aspirin 81 Village mg mg mg Family tablet,daniela tablet,daniela tablet,del Practic yed release yed release ayed e TAKE 1 TAKE 1 release TABLET BY TABLET BY TAKE 1 MOUTH EVERY MOUTH EVERY TABLET BY DAY DAY MOUTH EVERY DAY Contour Contour No Contour Villag e Next Test Next Test Next Test Family Strips Strips Strips Practic e FreeStyle FreeStyle No FreeStyle [place] Margy 14 Margy 14 Margy 14 Fam jong Day [place] Day [place] Day [place] Practic as directed as directed as e directed FreeStyle FreeStyle No FreeStyle [place] Margy 14 Margy 14 Margy 14 Fam jong Day Sensor Day Sensor Day Sensor Practic e FreeStyle FreeStyle No FreeStyle [place] Margy 14 Margy 14 Margy 14 Fam jong Day Sensor Day Sensor Day Sensor Practic kit kit kit e DIRECTED DIRECTED DIRECTED EVERY 14 EVERY 14 EVERY 14 DAYS DAYS DAYS Humalog Humalog No Humalog [facility] KwikPen KwikPen KwikPen Family (U-100) (U-100) (U-100) Practi c Insulin 100 Insulin 100 Insulin e unit/mL unit/mL 100 subcutaneou subcutaneou unit/mL s Use s Use subcutaneo before before us Use meals in meals in before case of case of meals in pump pump case of failure failure pump using ICR using ICR failure 1:5; CF 1:5; CF using ICR 1:40: TDD 1:40: TDD 1:5; CF 50 50 1:40: TDD 50 Humalog Humalog No Humalog Vill[facility] e U-100 U-100 U-100 Family Insulin 100 Insulin 100 Insulin Practic unit/mL unit/mL 100 e subcutaneou subcutaneou unit/mL s solution s solution subcutaneo USe with USe with us insulin insulin solution pump daily: pump daily: USe with TDD 130 TDD 130 insulin pump daily: TDD 130 meloxicam meloxicam No meloxicam [facility] 15 mg 15 mg 15 mg Family tablet TAKE tablet TAKE tablet Practic 1 TABLET BY 1 TABLET BY TAKE 1 e MOUTH EVERY MOUTH EVERY TABLET BY DAY DAY MOUTH EVERY DAY simvastatin simvastatin No simvastati Village 5 mg tablet 5 mg tablet n 5 mg Family TAKE 1 TAKE 1 tablet Practic TABLET BY TABLET BY TAKE 1 e MOUTH EVERY MOUTH EVERY TABLET BY DAY AT DAY AT MOUTH BEDTIME BEDTIME EVERY DAY AT BEDTIME Tresiba Tresiba No Tresiba [facility] FlexTouch FlexTouch FlexTouch Family U-200 U-200 U-200 Practic insulin 200 insulin 200 insulin e unit/mL (3 unit/mL (3 200 mL) mL) unit/mL (3 subcutaneou subcutaneou mL) s pen Give s pen Give subcutaneo 24 units in 24 units in us pen AM in case AM in case Give 24 of pump of pump units in failure and failure and AM in case increase as increase as of pump directed: directed: failure TDD 50 TDD 50 and increase as directed: TDD 50 Immunizations Ordered Immunization Filled Immunization Date Status Commen ts Source Name Name COVID-19, mRNA, COVID-19, mRNA, 2021-04-10 Completed Vill age Family LNP-S, PF, 100 LNP-S, PF, 100 00:00:00 Practi ce mcg/0.5 mL dose mcg/0.5 mL dose (Moderna) - ML (Moderna) - ML COVID-19, mRNA, COVID-19, mRNA, 2021-04-10 Completed Vill age Family LNP-S, PF, 100 LNP-S, PF, 100 00:00:00 Practi ce mcg/0.5 mL dose mcg/0.5 mL dose (Moderna) - ML (Moderna) - ML COVID-19, mRNA, COVID-19, mRNA, 2020-10-06 Completed Vill age Family LNP-S, PF, 100 LNP-S, PF, 100 00:00:00 Practi ce mcg/0.5 mL dose mcg/0.5 mL dose (Moderna) - ML (Moderna) - ML COVID-19, mRNA, COVID-19, mRNA, 2020-10-06 Completed Vill age Family LNP-S, PF, 100 LNP-S, PF, 100 00:00:00 Practi ce mcg/0.5 mL dose mcg/0.5 mL dose (Moderna) - ML (Moderna) - ML COVID-19, mRNA, COVID-19, mRNA, 2020-09-08 Completed Vill age Family LNP-S, PF, 100 LNP-S, PF, 100 00:00:00 Practi ce mcg/0.5 mL dose mcg/0.5 mL dose (Moderna) - ML (Moderna) - ML COVID-19, mRNA, COVID-19, mRNA, 2020-09-08 Completed Vill age Family LNP-S, PF, 100 LNP-S, PF, 100 00:00:00 Practi ce mcg/0.5 mL dose mcg/0.5 mL dose (Moderna) - ML (Moderna) - ML Non-US Vaccine Non-US Vaccine 2020-07-25 Completed [facility] Family COVID-19 PS COVID-19 PS 00:00:00 Practice (EpiVacCorona) (EpiVacCorona) Non-US Vaccine Non-US Vaccine 2020-07-25 Completed [facility] Family COVID-19 PS COVID-19 PS 00:00:00 Practice (EpiVacCorona) (EpiVacCorona) Non-US Vaccine Non-US Vaccine 2020-07-25 Completed [facility] Family COVID-19 PS COVID-19 PS 00:00:00 Practice (EpiVacCorona) (EpiVacCorona) Non-US Vaccine Non-US Vaccine 2020-06-27 Completed [facility] Family COVID-19 PS COVID-19 PS 00:00:00 Practice (EpiVacCorona) (EpiVacCorona) Non-US Vaccine Non-US Vaccine 2020-06-27 Completed [facility] Family COVID-19 PS COVID-19 PS 00:00:00 Practice (EpiVacCorona) (EpiVacCorona) Non-US Vaccine Non-US Vaccine 2020-06-27 Completed [facility] Family COVID-19 PS COVID-19 PS 00:00:00 Practice (EpiVacCorona) (EpiVacCorona) Vital Signs Vital Name Observation Time Observation Value Comments Source BP Diastolic 2022-07-05 00:00:00 76 mm[Hg] [facility] Height 2022-07-05 00:00:00 72 [in_i] [facility] BMI (Body Mass 2022-07-05 00:00:00 31.6 kg/m2 [facility] Index) Practice BP Systolic 2022-07-05 00:00:00 149 mm[Hg] [facility] Body Weight 2022-07-05 00:00:00 233 [lb_av] [facility] BP Diastolic 2022-04-03 00:00:00 93 mm[Hg] [facility] Height 2022-04-03 00:00:00 72 [in_i] [facility] BMI (Body Mass 2022-04-03 00:00:00 30.9 kg/m2 [facility] Family Index) Practice BP Systolic 2022-04-03 00:00:00 153 mm[Hg] [facility] Body Weight 2022-04-03 00:00:00 228 [lb_av] [facility] BP Diastolic 2022-01-01 00:00:00 80 mm[Hg] [facility] Height 2022-01-01 00:00:00 72 [in_i] [facility] BMI (Body Mass 2022-01-01 00:00:00 30.8 kg/m2 [facility] Index) Practice BP Systolic 2022-01-01 00:00:00 136 mm[Hg] [facility] Body Weight 2022-01-01 00:00:00 227 [lb_av] [facility] Height 2021-01-10 00:00:00 72 [in_i] [facility] BMI (Body Mass 2021-01-10 00:00:00 29.8 kg/m2 [facility] Family Index) Practice Body Weight 2021-01-10 00:00:00 220 [lb_av] [facility] Procedures Procedure Date / Time Performing Clinician Source Performed Procedure on Appendix 2019-07-02 00:00:00 [facility] Colonoscopy 2014-05-13 00:00:[address] [facility] Fami ly Practice Laser Assisted in Situ [facility] amily Keratomileusis Practice Bilateral Extraction of [facility] Cataracts Practice Plan of Care Planned Activity Planned Date Details Comments Source Diagnostic Test 2022-07-05 hemoglobin A1C, [place] Kym amily Pending 00:00:00 fingerstick [code = Practice hemoglobin A1C, fingerstick] Diagnostic Test 2022-07-05 glucose, fingerstick, Delfina flores Family Pending 00:00:00 blood [code = Practice glucose, fingerstick, blood] Encounters Start End Encounter Admission Attending Care Care Encounter Source Date/Time Date/Time Type Type Clinicians Facility Department ID 2021-03-12 Emergency [facility] [id number] Univers 12:07:52 ity [facility] 2021-03-11 Emergency [facility] [id number] Univers 17:42:03 ity [facility] 2021-03-10 Emergency [facility] [id number] Univers 02:48:43 ity [facility] 2021-03-10 Emergency [facility] [id number] Univers 01:37:15 ity of [facility] 2021-03-10 Emergency [facility] [id number] Univers 00:54:36 ity of [facility] 2021-03-10 Emergency [facility] [id number] Univers 00:33:36 ity [facility] 2022-09-10 2022-09-10 Outpatient Daniel_T VFP VFP [id number] [address] [place] [address] 00:00:00 00:00:00 [id number] Family Practic e 2022-09-10 2022-09-10 Outpatient Daniel_T VFP VFP [id number] [address] [place] [address] 00:00:00 00:00:00 [id number] Family Practic e 2022-07-05 2022-07-05 Outpatient Daniel_T VFP VFP [id number] [address] [place] [address] 00:00:00 00:00:00 [id number] Family Practic e 2022-07-05 2022-07-05 Outpatient Daniel_T VFP VFP [id number] [address] [place] [address] 00:00:00 00:00:00 [id number] Family Practic e 2022-07-05 2022-07-05 Jean Carlos VFP [place] - [id number] V illage 00:00:00 00:00:[address] [facility] Family NavarreteOlu - Pracbrie ko MD: [id number] [place] - e Shadow VM_JESSICA[facility], [address], [place] [address] , Ph. 2022-04-03 2022-04-03 Outpatient Daniel_T VFP VFP [id number] [address] [place] [address] 00:00:00 00:00:00 [id number] Family Practic e 2022-04-03 2022-04-03 Jean Carlos VFP [place] - [id number] V illage 00:00:00 00:00:[address] [facility] Family NavarreteOlu - Shun ok MD: [id number] [place] - e Shadow VM_JESSICA_Caesar [facility], [address], [place] [address] , Ph. 2022-01-12 2022-01-12 Outpatient Daniel_T VFP VFP [id number] [address] [facility] 00:00:00 00:00:00 [id number] Family Practic e 2022-01-03 2022-01-03 Outpatient Daniel_T VFP VFP [id number] [address] [facility] 00:00:00 00:00:00 [id number] Family Practic e 2022-01-01 2022-01-01 Jean Carlos Daniel_T VFP [place] - [id number] [facility] 00:00:00 00:00:00 [facility] [id number] Family NavarreteOlu - Pracbrie ko MD: [id number] HAKEEM_JESSICA_Caesar e Shadow [facility], [address], [place] [address] , Ph. 2021-10-19 2021-10-19 Outpatient Daniel_T VFP VFP [id number] [address] [place] [address] 00:00:00 00:00:00 [id number] Family Practic e 2021-01-27 2021-01-27 Outpatient Daniel_T VFP VFP [id number] [address] [place] [address] 08:29:00 08:29:00 [id number] Family Practic e 2021-01-12 2021-01-12 Outpatient Daniel_T VFP VFP [id number] [address] [place] [address] 03:42:00 03:42:00 [id number] Family Practic e 2021-01-10 2021-01-10 Jean Carlos Daniel_T VFP [place] - [id number] [facility] 00:00:00 00:00:00 [facility] [id number] Olu Navarrete MD: [id number] HAKEEM_JESSICA_Caesar e Shadow [facility], [address], [place] [address] , Ph. 2020-08-22 2020-08-22 Outpatient COH COH PBXFGEF URW COH 00:00:00 00:00:00 CK- 3 2020-08-11 2020-08-11 Outpatient Daniel_T VFP VFP [id number] [facility] 08:41:00 08:41:00 [id number] Family Practic e 2020-05-27 2020-05-27 Emergency X ANTHONY [facility] ERT [id number] Univers 09:47:00 11:11:00 TONI [facility] 2020-03-03 2020-03-03 Outpatient Landon_Arpan VFP [facility] [id number] [id number] Village 10:27:00 10:27:00 [id number] Family Practic e 2019-10-29 2019-10-29 [facility] [id number] Univers 14:40:00 14:40:00 SERVANDO [facility] 2019-07-17 2019-07-17 Outpatient R [facility]EMEDI[facility] 830 [id number] Univers 08:45:46 09:59:00 PAZ [facility] 2019-06-13 2019-06-24 [id number] Univers 04:23:21 17:30:00 YVROSE [facility] Results Test Description Test Time Test Comments Results Result Comments Source Hemoglobin A1c measurement device panel 2022-07-05 14:20:41 Test Item Value Reference Range Interpretation Comme nts Hemoglobin A1c/Hemoglobin.total in Blood (test code = 4548-4) 7.6 % 5.7-6.4 [facility] Capillary [id number] 14:16:44 Test Item Value Reference Range Interpretation Comments Blood Glucose: mg/dl (test code = Blood 225 Glucose: mg/dl) [facility] [id number] 11:15:48 Test Item Value Reference Range Interpretation Comments Hemoglobin A1c/Hemoglobin.total in 9.0 % 5.7-6.4 Blood (test code = 4548-4) [facility]Mass/volume] in Capillary [id number] 11:12:16 Test Item Value Reference Range Interpretation Comments Blood Glucose: mg/dl (test code = Blood 153 Glucose: mg/dl) [facility]
[2022-10-12] MEDS ORDERED: LIDOCAINE HCL JELLY 2% 6 ML SYRINGE TOP ONE (14:36)
[2022-10-12] MEDS ORDERED: LIDOCAINE 1% 20 ML MDV ONE (14:36)
[2022-10-12] MEDS ORDERED: TETANUS & DIPHTHERIA TOX,ADULT 0.5 ML VIAL ONE (14:37)
--- NOTE | 2022-10-12 15:09 | ER ---
Nurse's Notes [facility] Name: John Slater Age: 57 yrs Sex: Male : 1965 Arrival Date: 10/12/2022 Time: 14:03 Bed Treatment Private MD: Keith Pavon E Diagnosis: Streptococcal tonsillitis;Laceration without foreign body of right forearm Presentation: 10/12 14:16 Chief complaint: Patient states: laceration to R FA that occurred <30 minutes ago while ss moving an AC unit. PT states, "While I'm here, I've also been having a sore throat for 5 days and I want to get that checked out.". Coronavirus screen: Client denies travel out of the [place] in the last 14 days. Ebola Screen: Patient denies exposure to infectious person. Patient denies travel to an Ebola-affected area in the 21 days before illness onset. Complicating Factors: There are no complicating factors for this patient. Initial Sepsis Screen: Does the patient meet any 2 criteria? No. Patient's initial sepsis screen is negative. Does the patient have a suspected source of infection? No. Patient's initial sepsis screen is negative. Risk Assessment: Do you want to hurt yourself or someone else? Patient reports no desire to harm self or others. Onset of symptoms was October 12, 2022. 14:16 Method Of Arrival: Ambulatory ss 14:16 Acuity: CAMRON 4 ss Historical: - Allergies: 14:18 No Known Allergies; ss - PMHx: 14:18 Diabetes - IDDM; ss - Immunization history:: Last tetanus immunization: > 10 years ago. - Social history:: Smoking status: Patient denies any tobacco usage or history of. Screenin:45 [facility] ED Fall Risk Assessment (Adult) Score/Fall Risk Level 0 - 2 = Low Risk hb Oriented to surroundings, Maintained a safe environment. Abuse screen: Denies threats or abuse. Denies injuries from another. Nutritional screening: No deficits noted. Tuberculosis screening: No symptoms or risk factors identified. Assessment: 14:45 General: Appears in no apparent distress. Behavior is calm, cooperative. Pain: Pain hb currently is 2 out of 10 on a pain scale. Neuro: Level of Consciousness is awake, alert, obeys commands, Oriented to person, place, time, situation. Cardiovascular: Patient's skin is warm and dry. Respiratory: Respiratory effort is even, unlabored, Respiratory pattern is regular, symmetrical. GI: No signs and/or symptoms were reported involving the gastrointestinal system. : No signs and/or symptoms were reported regarding the genitourinary system. EENT: Reports pain with swallowing. Derm: Skin is pink, warm \\T\\ dry. Musculoskeletal: laceration noted to right forearm, bleeding controlled. Vital Signs: 14:16 BP 153 / 93; Pulse 77; Resp 16; Temp 98.1(TE); Pulse Ox 97% on R/A; Weight 104.33 kg; ss Height 6 ft. 0 in. ; Pain 0/10; 14:16 Body Mass Index 31.19 (104.33 kg, 182.88 cm) ss 14:16 Pain Scale: Adult ss ED Course: 14:05 Patient arrived in ED. mr 14:05 Keith Pavon MD is Private Physician. mr 14:09 José Miguel Ge MD is Attending Physician. bs3 14:18 Triage completed. ss 14:18 Arm band placed on right wrist. ss 14:45 Patient has correct armband on for positive identification. hb 14:45 No provider procedures requiring assistance completed. Patient did not have IV access hb during this emergency room visit. 15:09 Keith Pavon MD is Referral Physician. 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 Exp: hb 09/16/2023. Lot #: [id number]. } Route: IM; Site: left deltoid; 15:38 Follow up: Response: No adverse reaction hb 14:37 Drug: Lidocaine Infiltration (1 %) 10 ml Volume: 20 ml; Route: Infiltration; hb 15:21 Drug: penicillin G Benzathine IM 1.2 million units Route: IM; Site: left ventrogluteal; hb 15:38 Follow up: Response: No adverse reaction hb Medication: 15:41 Vaccine Information Statement (VIS) provided today. Questions and/or concerns hb addressed. VIS edition date: October 12, 2022. Outcome: 15:09 Discharge ordered by . bs3 15:41 Discharged to home ambulatory. hb 15:41 Condition: stable 15:41 Discharge instructions given to patient, Instructed on discharge instructions, follow up and referral plans. medication usage, wound care, Demonstrated understanding of instructions, follow-up care, medications, wound care. 15:41 Patient left the ED. hb Signatures: Allie Strickland Shelby, RN RN Loida Cooper RN RN José Miguel Ge MD MD bs3
--- NOTE | 2022-10-12 15:10 | EDPHYS ---
Physician Documentation [facility] Name: John Slater Age: 57 yrs Sex: Male : 1965 Arrival Date: 10/12/2022 Time: 14:03 Bed Treatment Private MD: Keith Pavon E ED Physician José Miguel Ge HPI: 10/12 14:24 This 57 yrs old Male presents to ER via Ambulatory with complaints of bs3 Laceration To Arm, Sore Throat. 14:24 Patient reports 5 days of the sore throat worse with swallowing better with on bs3 swallowing no changes in voice no difficulty breathing no muffled voice he notes that it hurts in the middle denies foreign body in addition just prior to arrival he cut himself with a air conditioner unknown last tetanus denies numbness tingling or weakness in his extremities. Historical: - Allergies: 14:18 No Known Allergies; ss - PMHx: 14:18 Diabetes - IDDM; ss - Immunization history:: Last tetanus immunization: > 10 years ago. - Social history:: Smoking status: Patient denies any tobacco usage or history of. ROS: 14:24 Constitutional: Negative for fever, chills bs3 14:24 All other systems are negative. Exam: 14:24 Constitutional: This is a well developed, well nourished patient who is awake, alert, bs3 and in no acute distress. Head/Face: Normocephalic, atraumatic. Eyes: Pupils equal round and reactive to light, extra-ocular motions intact. Lids and lashes normal. ENT: posterior tonsilar enlargement, no trismus, no drooling, no exudate, no uvular deviation Chest/axilla: Normal chest wall appearance and motion. Nontender with no deformity. No lesions are appreciated. Cardiovascular: Regular rate and rhythm with a normal S1 and S2. symmetric pulses in upper extremities Respiratory: Lungs have equal breath sounds bilaterally, clear to auscultation, no respiratory distress Abdomen/GI: Soft, non-tender, no rebound or guarding MS/ Extremity: superficial laceration on right arm, no active bleeding Neuro: Awake and alert, GCS 15, oriented to person, place, time, and situation. Cranial nerves II-XII grossly intact. Motor strength 5/5 in all extremities. Sensory grossly intact. Psych: Awake, alert, with orientation to person, place and time. Behavior, mood, and affect are within normal limits. Vital Signs: 14:16 BP 153 / 93; Pulse 77; Resp 16; Temp 98.1(TE); Pulse Ox 97% on R/A; Weight 104.33 kg; ss Height 6 ft. 0 in. ; Pain 0/10; 14:16 Body Mass Index 31.19 (104.33 kg, 182.88 cm) ss 14:16 Pain Scale: Adult ss Laceration: 15:02 Wound Repair of 3cm ( 1.2in ) subcutaneous laceration to right arm. Distal bs3 neuro/vascular/tendon intact. Anesthesia: Local anesthetic administered with 5 mls of 1% lidocaine. Wound prep: Simple cleansing with hibiclenz by nd. Skin closed with 7 4-0 Prolene using simple sutures and sterile technique. Dressed with non-adherent dressing. Patient tolerated well. MDM: 14:09 Patient medically screened. bs3 14:24 Data reviewed: vital signs, nurses notes. ED course: Patient with laceration repair bs3 will rule out strep no signs of SOCIAL SERVICE DIRECTOR, RPA, [place]. 15:02 ED course: lac repaired, strep positive, advised outpatient f/u, return for suture bs3 removal 7 sutures . 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 Exp: hb 09/16/2023. Lot #: [id number]. } Route: IM; Site: left deltoid; 15:38 Follow up: Response: No adverse reaction hb 14:37 Drug: Lidocaine Infiltration (1 %) 10 ml Volume: 20 ml; Route: Infiltration; hb 15:21 Drug: penicillin G Benzathine IM 1.2 million units Route: IM; Site: left ventrogluteal; hb 15:38 Follow up: Response: No adverse reaction hb Disposition Summary: 10/12/22 15:09 Discharge Ordered Location: Home bs3 Problem: new bs3 Symptoms: have improved bs3 Condition: Stable bs3 Diagnosis - Streptococcal tonsillitis bs3 - Laceration without foreign body of right forearm bs3 Followup: bs3 - With: Keith Pavon MD - When: 7 - 10 days - Reason: Re-evaluation by your physician Discharge Instructions: - Discharge Summary Sheet bs3 - Tonsillitis bs3 - Laceration Care, Adult, [id number] bs3 Forms: - Medication Reconciliation Form bs3 - Thank You Letter bs3 - Antibiotic Education bs3 - Prescription Opioid Use bs3 Signatures: Dispatcher [employer] Destinee Guthrie RN RN ss Baxter, Heather, RN RN hb Stein, Brandon, MD MD bs3
[2022-10-12] MEDS ORDERED: PEN G BENZ LA 1.2MU/2ML SYRINGE IM ONE (15:31)
[2022-10-12 15:46] VITALS: BP 153/93; TEMP 98.1; O2SAT 97
== END 2022-10-12 15:41 | disposition home or self-care (01) ==
LOC: ER 14:03
PROC: 0HQDXZZ Repair Right Lower Arm Skin, External Approach (ICD-10-PCS; principal; 2022-10-12)
DX: J02.0 Streptococcal pharyngitis (principal); S51.811A Laceration without foreign body of right forearm, initial encounter; Z23 Encounter for immunization
CPT/HCPCS: 87081; 90471; 90714; 96372; 99284; 12002; J2001; J0561

== ENCOUNTER 2022-10-23 09:54 | Emergency (ER) | payer OTHER ==
--- OUTSIDE RECORDS SUMMARY | 2022-10-23 09:58 | XMS REPORT | Continuity of Care Document ---
:1965 Author Organization [facility] t Address [address] [place] [address] Care Team Providers Name Role Phone AUBREY SALINAS Primary Care Physician Unavailable Nathan Attending Clinician Unavailable TONI CRUZ Attending Clinician Unavailable SERVANDO JOHNS Attending Clinician Unavailable PAZ DUNN Attending Clinician Unavailable YVROSE JETT Attending Clinician Unavailable Nathan Admitting Clinician Unavailable TONI CRUZ Admitting Clinician Unavailable PAZ DUNN Admitting Clinician Unavailable ROX GOODEN Admitting Clinician Unavailable Payers Payer Name Policy Type Policy Number Effective Date Expiration Date S zeann marie BS OF [place] - OUT [id number] 2019 OF [facility] 00:00:00 [facility] [id number] [facility] [id number] 2019 00:00:00 Problems Condition Condition Condition Status Onset Resolution Last Treating Co mments Source Name Details Category Date Date Treatment Clinician Date Hyperlipid Hyperlipid Problem Active 2021-05 [facility] emia emia 06-03 Family 00:00: Practic 00 e Insulin Insulin Problem Active 2021-05 [facility] pump Pump 06-03 Family present Present 00:00: Practic 00 e Long-term Long-term Problem Active 2021-05 Delfina sandra current Current 06-03 Family use of Use of 00:00: Practic insulin Insulin 00 e Type 1 Type 1 Problem Active [facility] diabetes Diabetes 8-31 Family mellitus Mellitus 00:00: Practi c 00 e Upper Upper Problem Active [facility] respirator Respirator 8-31 Fa stephanie y y 00:00: Practic infection Infection 00 e Overweight Overweight Problem Active [facility] 9-10 Family 00:00: Practic 00 e Clinical Clinical Problem Active Loera ge finding Finding 5-03 Family 00:00: Practic 00 e Obesity Obesity Problem Active [facility] 5-03 Family 00:00: Practic 00 e Influenza Influenza Problem Active Delfina flores vaccinatio Vaccinatio 3-08 Fa stephanie n status n Status 00:00: Practi c 00 e Type 1 Type 1 Problem Active [facility] diabetes Diabetes 7-21 Family mellitus Mellitus 00:00: Practi c without without 00 e complicati Complicati on on Clinical Clinical Problem Active Loera ge finding Finding 7-21 Family 00:00: Practic 00 e Family Family Problem Active [facility] history of History of 6-20 Fa stephanie diabetes Diabetes 00:00: Practi c mellitus Mellitus 00 e Allergies, Adverse Reactions, Alerts Allergy Allergy Status Severity Reaction(s) Onset Inactive Treating Comm ents Source Name Type Date Date Clinician NO KNOWN Drug Active [facility] ALLERGIE Class ity of [facility] Medications Ordered Filled Start Stop Current Ordering Indication Dosage Frequency Signature Comments Components Source Medication Medication Date Date Medication? Clinician (SIG) Name Name LisaKavitaHoang MckeonuCuca No Mikeu-Hoang [facility] Guide test Guide test Guide test [...] DAY atorvastati atorvastati No 1 Q1D atorvastat [facility] n 10 mg n 10 mg [...] Strips Practic e FreeStyle FreeStyle No FreeStyle [facility] Margy 14 Margy 14 Margy 14 Fam jong Day Panther Burn Day Panther Burn Day Panther Burn Practic as directed as directed as e directed FreeStyle FreeStyle No FreeStyle [facility] Margy 14 Margy 14 Margy 14 Fam jong Day Sensor Day Sensor Day Sensor Practic e FreeStyle FreeStyle No FreeStyle [facility] Margy 2 Margy 2 Margy 2 [...] UNITS levothyroxi levothyroxi No 1 Q1D levothyrox [facility] ne 88 mcg ne 88 mcg ine 88 mcg Family tablet Take tablet Take tablet Practic 1 tablet 1 tablet Take 1 e every day every day tablet by oral by oral every day route in route in by oral the morning the morning route in for 30 for 30 the days. days. morning for 30 days. meloxicam meloxicam meloxicam [facility] 15 mg 15 mg 15 mg Family tablet TAKE tablet TAKE tablet Practic 1 TABLET BY 1 TABLET BY TAKE 1 e MOUTH EVERY MOUTH EVERY TABLET BY DAY DAY MOUTH EVERY DAY simvastatin sim[facility]atin [facility] 5 mg tablet 5 mg tablet [...] DOSE: 50 UNITS) Accu-Chek Accu-Chek No Accu-Chek [facility] Guide test Guide test Guide test Family strips USE strips USE strips USE Practic 5 STRIPS 5 STRIPS 5 STRIPS e EVERY DAY EVERY DAY EVERY DAY amoxicillin amoxicillin No amoxicilli [facility] [phone] [phone] Family mg-potassiu [...] DAY MOUTH EVERY DAY atorvastati [facility]or[facility]ati [facility] mg n 10 mg [...] Strips Practic e FreeStyle FreeStyle No FreeStyle [facility] Margy 14 Margy 14 Margy 14 [...] 130 levothyroxi levothyroxi No 1 Q1D levothyrox [facility] ne 88 mcg ne 88 mcg ine 88 mcg Family tablet Take tablet Take tablet Practic 1 tablet 1 tablet Take 1 e every day every day tablet by oral by oral every day route in route in by oral the morning the morning route in for 30 for 30 the days. days. morning for 30 days. meloxicam meloxicam No meloxicam [facility] 15 mg 15 mg 15 mg Family tablet TAKE tablet TAKE tablet Practic 1 TABLET BY 1 TABLET BY TAKE 1 e MOUTH EVERY MOUTH EVERY TABLET BY DAY DAY MOUTH EVERY DAY Omnipod 5 Omnipod 5 No Omnipod 5 [facility] G6 Intro G6 Intro G6 Intro Fam jong Kit (Gen 5) Kit (Gen 5) Kit (Gen Practic subcutaneou subcutaneou 5) e s cartridge s cartridge subcutaneo with with us controller controller cartridge with controller prednisone prednisone No prednisone [facility] 5 mg tablet 5 mg tablet 5 mg F amily TAKE 1 TAKE 1 tablet Practic TABLET BY TABLET BY TAKE 1 e MOUTH TWICE MOUTH TWICE TABLET BY DAILY FOR 5 DAILY FOR 5 MOUTH DAYS DAYS TWICE DAILY FOR 5 DAYS simvastatin simvastatin No simvastati [facility] 5 mg tablet 5 mg tablet [...] UNITS) Accu-Chek Accu-Chek No 5strip( Q1D Accu-Chek [facility] Guide test Guide test s) Guide [...] Margy 14 Margy 14 Fam jong Day Panther Burn Day Panther Burn Day Panther Burn Practic as directed as directed as e [...] daily: TDD 130 meloxicam meloxicam No meloxicam [facility] 15 mg 15 mg 15 mg [...] Source BP Diastolic 2022-07-05 00:00:00 76 mm[Hg] [facility] Height 2022-07-05 00:00:00 72 [in_i] [facility] BMI (Body Mass 2022-07-05 00:00:00 31.6 kg/m2 [facility]) Practice BP Systolic 2022-07-05 00:00:00 149 mm[Hg] [facility] Body Weight 2022-07-05 00:00:00 233 [lb_av] [facility] BP Diastolic 2022-04-03 00:00:00 93 mm[Hg] [facility] Height 2022-04-03 00:00:00 72 [in_i] [facility] BMI (Body Mass 2022-04-03 00:00:00 30.9 kg/m2 [facility] Family Index) Practice BP Systolic 2022-04-03 00:00:00 153 mm[Hg] [facility] Body Weight 2022-04-03 00:00:00 228 [lb_av] [facility] BP Diastolic 2022-01-01 00:00:00 80 mm[Hg] [facility] Height 2022-01-01 00:00:00 72 [in_i] [facility] BMI (Body Mass 2022-01-01 00:00:00 30.8 kg/m2 [facility] Index) Practice BP Systolic 2022-01-01 00:00:00 136 mm[Hg] [facility] Body Weight 2022-01-01 00:00:00 227 [lb_av] [facility] Height 2021-01-10 00:00:00 72 [in_i] [facility] BMI (Body Mass 2021-01-10 00:00:00 29.8 kg/m2 [facility] Family Index) Practice Body Weight 2021-01-10 00:00:00 220 [lb_av] [facility] Procedures Procedure Date / Time Performing Clinician Source Performed Procedure on Appendix 2019-07-02 00:00:00 [place] Colonoscopy 2014-05-13 00:00:00 [facility] Fami ly Practice Laser Assisted in Situ [facility] amily Keratomileusis Practice Bilateral Extraction of [facility] Cataracts Practice Plan of Care Planned [...] Type Clinicians Facility Department ID 2021-03-12 Emergency [facility] [id number] Univers 12:07:52 ity [facility] 2021-03-11 Emergency [facility] [id number] Univers 17:42:03 ity [facility] 2021-03-10 Emergency [facility] [id number] Univers 02:48:43 ity [facility] 2021-03-10 Emergency [facility] [id number] Univers 01:37:15 ity of [facility] 2021-03-10 Emergency [facility] [id number] Univers 00:54:36 ity of [facility] 2021-03-10 Emergency [facility] [id number] Univers 00:33:36 ity [facility] 2022-09-10 2022-09-10 Outpatient Daniel_T VFP VFP [id number] [address] [place] [address] 00:00:00 00:00:00 [id number] Family Practic e 2022-09-10 2022-09-10 Outpatient Daniel_T VFP VFP [id number] [address] [place] [address] 00:00:00 00:00:00 [id number] Family Practic e 2022-07-05 2022-07-05 Outpatient Daniel_T VFP VFP [id number] [address] [place] [address] 00:00:00 00:00:00 [id number] Family Practic e 2022-07-05 2022-07-05 Outpatient Daniel_T VFP VFP [id number] [address] [place] [address] 00:00:00 00:00:00 [id number] Family Practic e 2022-07-05 2022-07-05 Jean Carlos VFP [place] - [id number] V illage 00:00:00 00:00:00 Lionel [facility] Family NavarreteOlu - Pracbrie ko MD: [id number] [place] - e Shadow VM_JESSICA_Caesar [facility], [address], [place] [address] , Ph. 2022-04-03 2022-04-03 Outpatient Daniel_T VFP VFP [id number] [address] [place] [address] 00:00:00 00:00:00 [id number] Family Practic e 2022-04-03 2022-04-03 Jean Carlos VFP [place] - [id number] V illage 00:00:00 00:00:00 Lionel [facility] Family NavarreteOlu - Shun ko MD: [id number] [place] - e Shadow VM_JESSICA_Caesar [facility] [place], [address], [place] [address] , Ph. 2022-01-12 2022-01-12 Outpatient Daniel_T VFP VFP [id number] 20 [facility] 00:00:00 00:00:00 [id number] Family Practic e 2022-01-03 2022-01-03 Outpatient Daniel_T VFP VFP [id number] 20 [facility] 00:00:00 00:00:00 [id number] Family Practic e 2022-01-01 2022-01-01 Jean Carlos Daniel_T VFP [place] - [id number] 0 [facility] 00:00:00 00:00:00 [facility] [id number] Family NavarreteOlu - Pracbrie ko MD: [id number] HAKEEM_JESSICA_Caesar e Shadow [facility], [address], [place] [address] , Ph. 2021-10-19 2021-10-19 Outpatient Daniel_T VFP VFP [id number] [address] [place] [address] 00:00:00 00:00:00 [id number] Family Practic e 2021-01-27 2021-01-27 Outpatient Daniel_T VFP VFP [id number] [address] [place] [address] 08:29:00 08:29:00 [id number] Family Practic e 2021-01-12 2021-01-12 Outpatient Daniel_T VFP VFP [id number] [address] [place] [address] 03:42:00 03:42:00 [id number] Family Practic e 2021-01-10 2021-01-10 Jean Carlos Daniel_T VFP [place] - [id number] [facility] 00:00:00 00:00:00 [facility] [id number] Olu Navarrete MD: [id number] HAKEEM_JESSICA_Caesar e Shadow [facility], [address], [place] [address] , Ph. 2020-08-22 2020-08-22 Outpatient COH COH PBXFGEF [facility] 00:00:00 00:00:00 CK- 3 2020-08-11 2020-08-11 Outpatient Daniel_T VFP VFP [id number] 720 [facility] 08:41:00 08:41:00 [id number] Family Practic e 2020-05-27 2020-05-27 Emergency X [facility] ERT [id number] Univers 09:47:00 11:11:00 TONI [facility] 2020-03-03 2020-03-03 Outpatient Landon_Arpan VFP [facility] [id number] 7-20 Village 10:27:00 10:27:00 [id number] Family Practic e 2019-10-29 2019-10-29 [facility] [id number] Univers 14:40:00 14:40:00 SERVANDO [facility] 2019-07-17 2019-07-17 [facility] [id number] Univers 08:45:46 09:59:00 PAZ [facility] 2019-06-13 2019-06-24 Inpatient X [facility] SAHIL [id number] Univers 04:23:21 17:30:00 YVROSE [facility] Results Test Description Test Time Test Comments Results Result Comments Source Hemoglobin A1c measurement device panel 2022-07-05 14:20:41 Test Item Value Reference Range Interpretation Comme nts Hemoglobin A1c/Hemoglobin.total in Blood (test code = 4548-4) 7.6 % 5.7-6.4 [facility] Capillary [id number] 14:16:44 Test Item Value Reference Range Interpretation Comments Blood Glucose: mg/dl (test code = Blood 225 Glucose: mg/dl) [facility] [id number] 11:15:48 Test Item Value Reference Range Interpretation Comments Hemoglobin A1c/Hemoglobin.total in 9.0 % 5.7-6.4 Blood (test code = 4548-4) [facility]/volume] in Capillary [id number] 11:12:16 Test Item Value Reference Range Interpretation Comments Blood Glucose: mg/dl (test code = Blood 153 Glucose: mg/dl) [facility]
--- NOTE | 2022-10-23 10:11 | EDPHYS ---
Physician Documentation [facility] Name: John Slater Age: 57 yrs Sex: Male : 1965 Arrival Date: 10/23/2022 Time: 09:54 Bed Waiting Private MD: ED Physician Tk Jensen HPI: 10/23 10:09 This 57 yrs old Male presents to ER via Ambulatory with complaints of Suture jmm Removal. 10:09 The patient has sutures on the right arm. Sutures/kevan progress: The patient has no jmm c/o's. The wound is well-healing with no redness, swelling, discharge, or dehiscence reported. It is unknown whether or not the patient has had similar symptoms in the past. Patient denies purulent drainage, pain, fever to the wound site. . Historical: - Allergies: 10:06 No Known Allergies; ph - PMHx: 10:06 Diabetes - IDDM; ph - Immunization history:: Adult Immunizations up to date. - Social history:: Smoking status: unknown. ROS: 10:09 Constitutional: Negative for fever, chills, and weight loss, Cardiovascular: Negative jmm for chest pain, palpitations, and edema, Respiratory: Negative for shortness of breath, cough, wheezing, and pleuritic chest pain. 10:09 Skin: Positive for laceration(s). 10:09 All other systems are negative. Exam: 10:09 Constitutional: This is a well developed, well nourished patient who is awake, alert, jmm and in no acute distress. Head/Face: atraumatic. Eyes: EOMI, no conjunctival erythema appreciated ENT: Moist Mucus Membranes Neck: Trachea midline, Supple Chest/axilla: Normal chest wall appearance and motion. Cardiovascular: Regular rate and rhythm. No edema appreciated Respiratory: Normal respirations, no respiratory distress appreciated Abdomen/GI: Non distended Back: Normal ROM 10:09 Skin: healing laceration noted to the right forearm, no purulent drainage. dehiscence is not appreciated. 10:09 Neuro: Orientation: is normal, Mentation: is normal, Memory: is normal. 10:09 Psych: Behavior/mood is pleasant, cooperative. Vital Signs: 10:04 BP 160 / 101; Pulse 82; Resp 18; Temp 98.2; Pulse Ox 97% on R/A; Weight 105.23 kg; ph Height 6 ft. 0 in. ; 10:04 Body Mass Index 31.46 (105.23 kg, 182.88 cm) ph Procedures: 13:24 Suture/Staple removal: Removed 7 sutures, from right arm, site appears well healed, jmm Patient tolerated well. MDM: 10:09 Patient medically screened. m Administered Medications: No medications were administered Disposition: 11:46 Co-signature as Attending Physician, Tk Jensen DO I was immediately available on-site ms3 in the Emergency Department for consultation in the care of the patient. Disposition Summary: 10/23/22 10:09 Discharge Ordered Location: Home [facility] Condition: Stable jm Diagnosis - Encounter for removal of sutures [facility] Followup: jmm - With: Private Physician - When: As needed - Reason: Recheck today's complaints, Continuance of care, Re-evaluation by your physician Discharge Instructions: - Discharge Summary Sheet [facility] - Suture Removal, Care After [facility] Forms: - Medication Reconciliation Form [facility] - Thank You Letter [facility] - Antibiotic Education [facility] - Prescription Opioid Use [facility] Signatures: Janes Mills PA PA jmm Hall, Patricia, RN RN ph Tk Jensen DO DO ms3
--- NOTE | 2022-10-23 10:11 | ER ---
Nurse's Notes [facility] Name: John Slater Age: 57 yrs Sex: Male : 1965 Arrival Date: 10/23/2022 Time: 09:54 Bed Waiting Private MD: Diagnosis: Encounter for removal of sutures Presentation: 10/23 10:04 Chief complaint: Patient states: Sutures placed to laceration on R forearm 11 days ago, ph slight redness noted to area. Coronavirus screen: Vaccine status: Patient reports receiving the 2nd dose of the covid vaccine. Ebola Screen: No symptoms or risks identified at this time. Initial Sepsis Screen: Does the patient meet any 2 criteria? No. Patient's initial sepsis screen is negative. Does the patient have a suspected source of infection? No. Patient's initial sepsis screen is negative. Risk Assessment: Do you want to hurt yourself or someone else? Patient reports no desire to harm self or others. Onset of symptoms was October 23, 2022. 10:04 Method Of Arrival: Ambulatory ph 10:04 Acuity: [facility] 5 ph Triage Assessment: 10:07 General: Appears in no apparent distress. comfortable, Behavior is calm, cooperative. ph Pain: Denies pain. Neuro: Level of Consciousness is awake, alert, obeys commands, Oriented to person, place, time, situation. Derm: Skin is pink, warm \T\ dry. Injury Description: laceration w/ sutures in place to R forearm, slight redness noted, ERP in triage for suture removal. Historical: - Allergies: 10:06 No Known Allergies; ph - PMHx: 10:06 Diabetes - IDDM; ph - Immunization history:: Adult Immunizations up to date. - Social history:: Smoking status: unknown. Screenin:07 [facility] ED Fall Risk Assessment (Adult) History of falling in the last 3 months, ph including since admission No falls in past 3 months (0 pts) Confusion or Disorientation No (0 pts) Intoxicated or Sedated No (0 pts) Impaired Gait No (0 pts) Mobility Assist Device Used No (0 pt) Altered Elimination No (0 pt) Score/Fall Risk Level 0 - 2 = Low Risk Oriented to surroundings. Abuse screen: Denies threats or abuse. Denies injuries from another. Nutritional screening: No deficits noted. Tuberculosis screening: No symptoms or risk factors identified. Vital Signs: 10:04 BP 160 / 101; Pulse 82; Resp 18; Temp 98.2; Pulse Ox 97% on R/A; Weight 105.23 kg; ph Height 6 ft. 0 in. ; 10:04 Body Mass Index 31.46 (105.23 kg, 182.88 cm) ph ED Course: 09:56 Patient arrived in ED. rg4 09:58 [facility]es Mills [facility] 09:58 Tk Jensen DO is Attending Physician. [facility] 10:06 Triage completed. ph 10:07 Arm band placed on. ph 10:08 Patient has correct armband on for positive identification. ph 10:08 No provider procedures requiring assistance completed. Patient did not have IV access ph during this emergency room visit. Administered Medications: No medications were administered Medication: 10:08 VIS not applicable for this client. ph Outcome: 10:09 Discharge ordered by . [facility] 10:12 Patient left the ED. ph 10:12 Discharged to home ambulatory. ph 10:12 Condition: good 10:12 Discharge instructions given to patient, Instructed on discharge instructions, follow up and referral plans. Demonstrated understanding of instructions, follow-up care. Signatures: Janes Mills PA PA jmm Hall, Patricia, RN RN ph Mary Van rg4
[2022-10-23 10:18] VITALS: BP 160/101; TEMP 98.2; O2SAT 97
== END 2022-10-23 10:12 | disposition home or self-care (01) ==
LOC: ER 09:54
DX: Z48.02 Encounter for removal of sutures (principal)
CPT/HCPCS: 99282

== ENCOUNTER 2025-02-01 07:32 | Emergency (ER) | payer OTHER ==
--- OUTSIDE RECORDS SUMMARY | 2025-02-01 07:37 | XMS REPORT | Continuity of Care Document ---
Author Name Unknown Address [address] [facility] [place] [address] [facility] Address [address] [facility] [place] [address] Care Team Providers Care Assistant Front Desk Manager Name Role Phone SHEA CHOUDHURY Primary Care Physician Unavaila Anjali Avila Attending Clinician Unavailable Anjali MASTERS Attending Clinician Unavailable Anjali Gomez Attending Clinician [phone] Lena Attending Clinician Unavailable TONI CRUZ Attending Clinician Unavailab SERVANDO Molina Attending Clinician Unavailable PAZ DUNN Attending Clinician Unavailable YVROSE JETT Attending Clinician Unavailable Lena Admitting Clinician Unavailable TONI CRUZ Admitting Clinician Unavailab PAZ Cook Admitting Clinician Unavailable ROX GOODEN Admitting Clinician Unavail able Payers Payer Name Policy Type Policy Number Effective Date Expirati on Date Source [facility] - [facility] STATE [id number] 2019 00:00:00 [facility] [id number] [facility] [id number] 2019 00:00:00 Problems Condition Name Condition Details Condition Category Status Onset Date Resolution Date Last Treatment Date Treating Clinician Comments Source Hypothyroi dism Hypothyroi dism Problem Active 05-29 00:00: 00 [facility] Elevated blood-pres sure reading without diagnosis of hypertensi on Elevated Blood-pres sure Reading without Diagnosis of Hypertensi on Problem Active 2022-05 00:00: 00 [facility] Proliferat rodrick retinopath y Proliferat rodrick Retinopath y Problem Active 10-05 00:00: 00 [facility] Hyperlipid emia Hyperlipid emia Problem Active 2021-05 00:00: 00 [facility] Insulin pump present Insulin Pump Present Problem Active 2021-05 00:00: 00 [facility] Long-term current use of insulin Long-term Current Use of Insulin Problem Active 2021-05 00:00: 00 [facility] Type 1 diabetes mellitus Type 1 Diabetes Mellitus Problem Active 01-10 00:00: 00 [facility] Upper respirator y infection Upper Respirator y Infection Problem Active 01-10 00:00: 00 [facility] Appendicit is with perforatio n Appendicit is with perforatio n Disease Active 2-03 00:00: 00 [facility] Ileus Ileus Disease Active 2-03 00:00: 00 [facility] Insulin dependent diabetes mellitus Insulin dependent diabetes mellitus Disease Recurre nce 2-03 00:00: 00 [facility] Overweight Overweight Problem Active 9- 00:00: 00 [facility] Clinical finding Clinical Finding Problem Active 5- 00:00: 00 [facility] Obesity Obesity Problem Active 5 00:00: 00 [facility] Influenza vaccinatio n status Influenza Vaccinatio n Status Problem Active 308 00:00: 00 [facility] Clinical finding Clinical Finding Problem Active 11-30 00:00: 00 [facility] Family history of diabetes mellitus Family History of Diabetes Mellitus Problem Active 10-30 00:00: 00 [facility] Allergies, Adverse Reactions, Alerts Allergy Name Allergy Type Status Severity Reaction(s) Onset Date Inactive Date Treating Clinician Comments Source NO KNOWN ALLERGIE S Drug Class Active [facility] Social History Social Habit Start Date Stop Date Quantity Comments Source History of tobacco use Current smoker [facility] Sexual orientation U [facility] Alcoholic beverage intake 2020-08-22 00:00:00 2020-08-22 00:00:00 Lifetime non-drinker (finding) [facility] History of Social function 2020-08-22 00:00:00 2020-08-22 00:00:00 [facility] Tobacco use and exposure 2019-06-30 00:00:00 2019-06-30 00:00:00 Smokeless tobacco non-user [facility] Sex assigned at 1965 00:00:00 1965 00:00:00 [facility] Smoking Status Start Date Stop Date Source Never Smoker [facility] Ex-smoker 2019-06-30 00:00:00 2019-06-30 00:00:00 [facility] Medications Ordered Medication Name Filled Medication Name Start Date Stop Date Current Medication? Ordering Clinician Indication Dosage Frequency Signature (SIG) Comments Components Source ketorolac (TORADOL) injection 30 mg 06-15 16:30: 00 06-15 15:43 :00 No 30mg 30 mg, Intramuscu lar, ONCE, 1 dose, On Sat06/15/24 at 1030, [place] [facility] naproxen (NAPROSYN) 500 mg tablet 06-15 00:00: 00 Yes [id number] 500mg Take 1 tablet by mouth 2 (two) times daily with meals. [facility] methocarbam oL 500 mg tablet 06-15 00:00: 00 Yes [id number] 500mg Take 1 tablet by mouth 4 (four) times daily. [facility] benzonatate 200 mg capsule 08-22 00:00: 00 Yes [id number] 200mg Take 1 capsule by mouth 3 (three) times daily as needed for Cough. [facility] albuterol 90 mcg/actuati on inhaler 08-22 00:00: 00 Yes [id number] 2{puff} Inhale 2 Puffs every 4 (four) hours as needed for Wheezing or Shortness of Breath. [facility] subcutaneou s insulin pump (INSULIN PUMP ENG/CITIZEN [employer] [place] R1000 MISC) 2020-0 6-11 11:08: 49 Yes [facility] FREESTYLE ASHLEY 14 DAY SENSOR Kit 2-03 00:00: 00 Yes USE 1 SENSOR Q 14 DAYS DIRECTED [facility] Accu-Chek Guide test strips USE 5 STRIPS EVERY DAY Accu-Chek Guide test strips USE 5 STRIPS EVERY DAY No Accu-Chek Guide test strips USE 5 STRIPS EVERY DAY [facility] aspirin 81 mg tablet,daniela yed release TAKE 1 TABLET BY MOUTH EVERY DAY aspirin 81 mg tablet,daniela yed release TAKE 1 TABLET BY MOUTH EVERY DAY No aspirin 81 mg tablet,del ayed release TAKE 1 TABLET BY MOUTH EVERY DAY [facility] atorvastati n 10 mg tablet TAKE 1 TABLET BY MOUTH EVERY DAY IN THE EVENING atorvastati n 10 mg tablet TAKE 1 TABLET BY MOUTH EVERY DAY IN THE EVENING No atorvastat in 10 mg tablet TAKE 1 TABLET BY MOUTH EVERY DAY IN THE EVENING [facility] BD Ambreen 2nd Gen Pen Needle 32 gauge x 5/32" USE FOUR TIMES DAILY DIRECTED INCASE OF PUMP FAILURE BD Ambreen 2nd Gen Pen Needle 32 gauge x 5/32" USE FOUR TIMES DAILY DIRECTED INCASE OF PUMP FAILURE No BD Ambreen 2nd Gen Pen Needle 32 gauge x 5/32" USE FOUR TIMES DAILY DIRECTED INCASE OF PUMP FAILURE [facility] Contour Next Test Strips Contour Next Test Strips No Contour Next Test Strips [facility] Dexcom G6 Sensor device USE DIRECTED AND CHANGE EVERY 10 DAYS Dexcom G6 Sensor device USE DIRECTED AND CHANGE EVERY 10 DAYS No Dexcom G6 Sensor device USE DIRECTED AND CHANGE EVERY 10 DAYS [facility] Dexcom G6 Transmitter device Take 1 device every 3 months by miscell. route. Dexcom G6 Transmitter device Take 1 device every 3 months by miscell. route. No Dexcom G6 Transmitte r device Take 1 device every 3 months by miscell. route. [facility] insulin lispro (U-100) 100 unit/mL subcutaneou s pen USE BEFORE MEALS IN CASE OF PUMP FAILURE USING ICR 1:4, CF 1:30; TDD 50 insulin lispro (U-100) 100 unit/mL subcutaneou s pen USE BEFORE MEALS IN CASE OF PUMP FAILURE USING ICR 1:4, CF 1:30; TDD 50 No insulin lispro (U-100) 100 unit/mL subcutaneo us pen USE BEFORE MEALS IN CASE OF PUMP FAILURE USING ICR 1:4, CF 1:30; TDD 50 [facility] insulin lispro (U-100) 100 unit/mL subcutaneou s solution USE WITH INSULIN PUMP. TOTAL DAILY DOSE OF 100 insulin lispro (U-100) 100 unit/mL subcutaneou s solution USE WITH INSULIN PUMP. TOTAL DAILY DOSE OF 100 No insulin lispro (U-100) 100 unit/mL subcutaneo us solution USE WITH INSULIN PUMP. TOTAL DAILY DOSE OF 100 [facility] levothyroxi ne 88 mcg tablet TAKE 1 TABLET BY MOUTH EVERY DAY IN THE MORNING levothyroxi ne 88 mcg tablet TAKE 1 TABLET BY MOUTH EVERY DAY IN THE MORNING No levothyrox ine 88 mcg tablet TAKE 1 TABLET BY MOUTH EVERY DAY IN THE MORNING [facility] meloxicam 15 mg tablet TAKE 1 TABLET BY MOUTH EVERY DAY meloxicam 15 mg tablet TAKE 1 TABLET BY MOUTH EVERY DAY No meloxicam 15 mg tablet TAKE 1 TABLET BY MOUTH EVERY DAY [facility] Omnipod 5 G6 Intro Kit (Gen 5) subcutaneou s cartridge with controller Inject 15 cartridges every month by subcutaneou s route. Omnipod 5 G6 Intro Kit (Gen 5) subcutaneou s cartridge with controller Inject 15 cartridges every month by subcutaneou s route. No 15cartr idge(s) Omnipod 5 G6 Intro Kit (Gen 5) subcutaneo us cartridge with controller Inject 15 cartridges every month by subcutaneo us route. [facility] Omnipod 5 G6 Pods (Gen 5) subcutaneou s cartridge USE DIRECTED AND REPLACE EVERY 48 HOURS Omnipod 5 G6 Pods (Gen 5) subcutaneou s cartridge USE DIRECTED AND REPLACE EVERY 48 HOURS No Omnipod 5 G6 Pods (Gen 5) subcutaneo us cartridge USE DIRECTED AND REPLACE EVERY 48 HOURS [facility] Prescriptio n - Prior Authorizati on Request Prescriptio n - Prior Authorizati on Request No Prescripti on - Prior Authorizat ion Request [facility] simvastatin 5 mg tablet TAKE 1 TABLET BY MOUTH EVERY DAY AT BEDTIME simvastatin 5 mg tablet TAKE 1 TABLET BY MOUTH EVERY DAY AT BEDTIME No simvastati n 5 mg tablet TAKE 1 TABLET BY MOUTH EVERY DAY AT BEDTIME [facility] Tresiba FlexTouch U-200 insulin 200 unit/mL (3 mL) subcutaneou s pen INJECT 24 UNITS UNDER THE SKIN IN THE MORNING IN CAPSULAS OF PUMP FAILURE AND INCREAS DIRECTED( TOTAL DAILY DOSE: 50 UNITS) Tresiba FlexTouch U-200 insulin 200 unit/mL (3 mL) subcutaneou s pen INJECT 24 UNITS UNDER THE SKIN IN THE MORNING IN CAPSULAS OF PUMP FAILURE AND INCREAS DIRECTED( TOTAL DAILY DOSE: 50 UNITS) No Tresiba FlexTouch U-200 insulin 200 unit/mL (3 mL) subcutaneo us pen INJECT 24 UNITS UNDER THE SKIN IN THE MORNING IN CAPSULAS OF PUMP FAILURE AND INCREAS DIRECTED( TOTAL DAILY DOSE: 50 UNITS) [facility] bromphenira mine-pseudo ephedrine-D M 2 mg-30 mg-10 mg/5 mL oral syrup TAKE 5 ML BY MOUTH EVERY 6 HOURS FOR 7 DAYS bromphenira mine-pseudo ephedrine-D M 2 mg-30 mg-10 mg/5 mL oral syrup TAKE 5 ML BY MOUTH EVERY 6 HOURS FOR 7 DAYS No bromphenir amine-pseu doephedrin e-DM 2 mg-30 mg-10 mg/5 mL oral syrup TAKE 5 ML BY MOUTH EVERY 6 HOURS FOR 7 DAYS [facility] levofloxaci n 500 mg tablet TAKE 1 TABLET BY MOUTH DAILY FOR 10 DAYS levofloxaci n 500 mg tablet TAKE 1 TABLET BY MOUTH DAILY FOR 10 DAYS No levofloxac in 500 mg tablet TAKE 1 TABLET BY MOUTH DAILY FOR 10 DAYS [facility] methylpredn isolone 4 mg tablets in a dose pack FOLLOW PACKAGE DIRECTIONS methylpredn isolone 4 mg tablets in a dose pack FOLLOW PACKAGE DIRECTIONS No methylpred nisolone 4 mg tablets in a dose pack FOLLOW PACKAGE DIRECTIONS [facility] Omnipod 5 G6-G7 Pods (Gen 5) subcutaneou s cartridge USE DIRECTED AND REPLACE EVERY 48 HOURS Omnipod 5 G6-G7 Pods (Gen 5) subcutaneou s cartridge USE DIRECTED AND REPLACE EVERY 48 HOURS No Omnipod 5 G6-G7 Pods (Gen 5) subcutaneo us cartridge USE DIRECTED AND REPLACE EVERY 48 HOURS [facility] Toujeo Max U-300 SoloStar 300 unit/mL (3 mL) subcutaneou s insulin pen Give 30 units in case of pump failure and increase as directed: TDD 50 Toujeo Max U-300 SoloStar 300 unit/mL (3 mL) subcutaneou s insulin pen Give 30 units in case of pump failure and increase as directed: TDD 50 No Toujeo Max U-300 SoloStar 300 unit/mL (3 mL) subcutaneo us insulin pen Give 30 units in case of pump failure and increase as directed: TDD 50 [place] e Immunizations Ordered Immunization Name Filled Immunization Name Date Status Comments Source Human Rabies Vaccine From Chicken Fibroblast Culture (RABAVERT) 2019-11-05 00:00:00 Completed Human Rabies Vaccine From Chicken Fibroblast Culture (RABAVERT) 2019-10-29 00:00:00 Completed [facility] Human Rabies Vaccine From Human Diploid Cell Culture (IMOVAX) 2019-10-25 00:00:00 Completed [facility] Human Rabies Vaccine From Chicken Fibroblast Culture (RABAVERT) 2019-10-22 00:00:00 Completed [facility] TD, NOS 2019-10-22 00:00:00 Completed COVID-19, mRNA, LNP-S, PF, 100 mcg/0.5 mL dose (Moderna) - ML COVID-19, mRNA, LNP-S, PF, 100 mcg/0.5 mL dose (Moderna) - ML Unknown Completed [facility] Non-US Vaccine COVID-19 PS (EpiVacCorona) Non-US Vaccine COVID-19 PS (EpiVacCorona) Unknown Completed [facility] Vital Signs Vital Name Observation Time Observation Value Comments S ource Diastolic blood pressure 2024-06-15 15:15:00 91 mm[Hg] [facility] Heart rate 2024-06-15 15:15:00 85 /min [facility] Body temperature 2024-06-15 15:15:00 36.61 Payal [facility] Oxygen saturation in Arterial blood by Pulse oximetry 2024-06-15 15:15:00 93 /min [facility] Systolic blood pressure 2024-06-15 15:15:00 143 mm[Hg] [facility] Respiratory rate 2024-06-15 15:00:00 16 /min [facility] Body height 2024-06-15 14:22:00 182.9 cm [facility] Body weight 2024-06-15 14:22:00 99.791 [facility] BMI 2024-06-15 14:22:00 29.84 kg/m2 [facility] BP Diastolic 2024-03-31 00:00:00 81 mm[Hg] [facility] BP Systolic 2024-03-31 00:00:00 150 mm[Hg] [facility] BMI (Body Mass Index) 2024-03-31 00:00:00 28.8 kg/m2 [facility] Height 2024-03-31 00:00:00 72 [in_i] [facility] Body Weight 2024-03-31 00:00:00 212 [lb_av] [facility] BP Systolic 2023-08-23 00:00:00 148 mm[Hg] [facility] Height 2023-08-23 00:00:00 72 [in_i] [facility] BP Diastolic 2023-08-23 00:00:00 81 mm[Hg] [facility] Body Weight 2023-08-23 00:00:00 222 [lb_av] [facility] BMI (Body Mass Index) 2023-08-23 00:00:00 30.1 kg/m2 [facility] BMI (Body Mass Index) 2023-05-23 00:00:00 30.1 kg/m2 [facility] Body Weight 2023-05-23 00:00:00 222 [lb_av] [facility] BP Diastolic 2023-05-23 00:00:00 73 mm[Hg] [facility] BP Systolic 2023-05-23 00:00:00 118 mm[Hg] [facility] Height 2023-05-23 00:00:00 72 [in_i] [facility] BP Systolic 2023-03-07 00:00:00 144 mm[Hg] [facility] BP Diastolic 2023-03-07 00:00:00 79 mm[Hg] [facility] Body Weight 2023-03-07 00:00:00 230 [lb_av] [facility] BMI (Body Mass Index) 2023-03-07 00:00:00 31.2 kg/m2 [facility] Height 2023-03-07 00:00:00 72 [in_i] [facility] BP Diastolic 2022-12-05 00:00:00 65 mm[Hg] [facility] Height 2022-12-05 00:00:00 72 [in_i] [facility] BMI (Body Mass Index) 2022-12-05 00:00:00 31.7 kg/m2 [facility] BP Systolic 2022-12-05 00:00:00 154 mm[Hg] [facility] Body Weight 2022-12-05 00:00:00 234 [lb_av] [facility] BP Diastolic 2022-07-05 00:00:00 76 mm[Hg] [facility] Height 2022-07-05 00:00:00 72 [in_i] [facility] BMI (Body Mass Index) 2022-07-05 00:00:00 31.6 kg/m2 [facility] BP Systolic 2022-07-05 00:00:00 149 mm[Hg] [facility] Body Weight 2022-07-05 00:00:00 233 [lb_av] [place] BP Diastolic 2022-04-03 00:00:00 93 mm[Hg] [facility] Height 2022-04-03 00:00:00 72 [in_i] [facility] BMI (Body Mass Index) 2022-04-03 00:00:00 30.9 kg/m2 [facility] BP Systolic 2022-04-03 00:00:00 153 mm[Hg] [facility] Body Weight 2022-04-03 00:00:00 228 [lb_av] [place] Procedures Procedure Date / Time Performed Performing Clinician Source Lasik 2023-01-18 00:00:00 [facility] Procedure on Appendix 2019-07-02 00:00:00 [facility] Colonoscopy 2014-05-13 00:00:00 [facility] Laser Assisted in Situ Keratomileusis [facility] Bilateral Extraction of Cataracts [facility] Encounters Start Date/Time End Date/Time Encounter Type Admission Type Attending Clinicians Care Facility Care Department Encounter ID Source 2021-03-12 12:07:52 Emergency [facility] [id number] [facility] 2021-03-11 17:42:03 Emergency [facility] [id number] [facility] 2021-03-10 02:48:43 Emergency [facility] [id number] [facility] 2021-03-10 01:37:15 Emergency [facility] [id number] [facility] 2021-03-10 00:54:36 Emergency [facility] [id number] [facility] 2021-03-10 00:33:36 Emergency [facility] [id number] [facility] 2024-08-31 14:23:36 2024-08-31 14:23:36 Outpatient [facility] [id number] Abhijit Meyers 2024 15:52:03 2024 15:52:03 Outpatient [facility] [id number] Abhijit Meyers 2024-06-15 08:23:00 2024-06-15 09:54:00 Emergency X Anjali MASTERS K [facility] ERT [id number] [facility] 2024-06-15 08:23:00 2024-06-15 09:54:00 Emergency Anjali Masters [facility] [id number] [facility] 2024-03-31 00:00:00 2024-03-31 00:00:00 Jean Carlos Navarrete MD: [id number], [address], [place] [address] , Ph. [facility] [place] - VM_HOU_[place] [id number] [facility] 2023-08-23 00:00:00 2023-08-23 00:00:00 Jean Carlos Navarrete MD: [id number], [address], [place] [address] , Ph. Landon_Arpan_DELROY CHILDRESS [facility] [place] - VM_HOU_[place] [id number] [facility] 2023-05-23 00:00:00 2023-05-23 00:00:00 Jean Carlos Navarrete MD: [id number], [address], [place] [address] , Ph. [facility] [place] - VM_HOU_[place] [id number] [facility] 2023-03-07 00:00:00 2023-03-07 00:00:00 Jean Carlos Navarrete MD: [id number], [address] [place] [address] , Ph. [facility] [place] - VM_HOU_[place] [id number] [facility] 2022-12-05 00:00:00 2022-12-05 00:00:00 Jean Carlos Navarrete MD: [id number], [address] [place] [address] , Ph. [facility] [place] - VM_HOU_[place] [id number] [facility] 2022-07-05 00:00:00 2022-07-05 00:00:00 Jean Carlos Navarrete MD: [id number], [address], [place] [address] , Ph. [facility] [place] - [facility]_HOU_[place] [id number] [place] e 2022-04-03 00:00:00 2022-04-03 00:00:00 Jean Carlos Navarrete MD: [id number], [address], [place] [address] , Ph. [facility] [place] [facility]_HOU_[place] [address] [id number] [facility] e 2020-08-22 00:00:00 2020-08-22 00:00:00 Outpatient [facility] [id number] [facility] 2020-05-27 09:47:00 2020-05-27 11:11:00 Emergency X TONI CRUZ [facility] ERT [id number] [facility] 2019-10-29 14:40:00 2019-10-29 14:40:00 Outpatient R SERVANDO JOHNS [facility] [id number] [facility] 2019-07-17 08:45:46 2019-07-17 09:59:00 Outpatient R LAKIARONPAZ [facility] [id number] [facility] 2019-06-13 04:23:21 2019-06-24 17:30:00 Inpatient X MALIHA YVROSE [facility] SAHIL [id number] [facility] Results Test Description Test Time Test Comments Results Result Co mments Source [facility] PracticeGlucose [Mass/volume] in Capillary [id number] 08:38:32* Test Item Value Reference Range Interpretation Comme nts Blood Glucose: mg/dl (test c ode = Blood Glucose: mg/dl) [facility] [id number] 11:33:36* Test Item Value Reference Range Interpretation Comme nts Blood Glucose: mg/dl (test c ode = Blood Glucose: mg/dl) 183 [facility] device [id number] 11:51:28* Test Item Value Reference Range Interpretation Comme nts Hemoglobin A1c/Hemoglobin.to israel in Blood (test code = 4548-4) 7.9 % 4.0-6.4 [facility] PracticeGlucose [Mass/volume] in Capillary [id number] 11:47:20* Test Item Value Reference Range Interpretation Comme nts Blood Glucose: mg/dl (test c ode = Blood Glucose: mg/dl) 101 [facility] [id number] 15:33:07* Test Item Value Reference Range Interpretation Comme nts Hemoglobin A1c/Hemoglobin.to israel in Blood (test code = 4548-4) 8.5 % 4.0-6.4 [facility] in Capillary [id number] 15:27:59* Test Item Value Reference Range Interpretation Comme nts Blood Glucose: mg/dl (test c ode = Blood Glucose: mg/dl) 289 [facility] [id number] 14:20:41* Test Item Value Reference Range Interpretation Comme nts Hemoglobin A1c/Hemoglobin.to israel in Blood (test code = 4548-4) 7.6 % 5.7-6.4 [facility] in Capillary [id number] 14:16:44* Test Item Value Reference Range Interpretation Comme nts Blood Glucose: mg/dl (test c ode = Blood Glucose: mg/dl) 225 [facility] [id number] 11:15:48* Test Item Value Reference Range Interpretation Comme nts Hemoglobin A1c/Hemoglobin.to israel in Blood (test code = 4548-4) 9.0 % 5.7-6.4 [facility] in Capillary [id number] 11:12:16* Test Item Value Reference Range Interpretation Comme nts Blood Glucose: mg/dl (test c ode = Blood Glucose: mg/dl) 153 [facility] Notes Date/Time Note Provider Source 2024-06-15 09:53:00 Pt discharged with diagnosis of strain of lumbar. Printed and verbal instructions reviewed with and given to pt. Prescriptions given x 2. pt verbalized understanding of teaching and recommended follow-up. Denies questions or concerns at this time. Pt ambulatory at discharge. Appears in no apparent distress. No ataxia noted. ETTE Whitman RN [facility] 2024-06-15 08:21:44 Patient reports low back pain x 1 week. It is painful when walking. WARE COMPUTER SPECIALIST Williams Bermudez RN [facility]
[2025-02-01] MEDS ORDERED: LIDOCAINE 1% MPF 2 ML AMPULE ONE (07:52)
--- NOTE | 2025-02-01 08:46 | EDPHYS ---
Physician Documentation [facility] Name: John Slater Age: 59 yrs Sex: Male : 1965 Arrival Date: 02/01/2025 Time: 07:32 Bed 7 Private MD: ED Physician Gonzalez Flynn HPI: 02/01 08:40 This 59 yrs old Male presents to ER via Ambulatory with complaints of ring rn stuck on left finger. 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 Reports increased swelling and unable to remove ring. Reports pain but no discoloration or cyanosis. Event happened 2 or 3 days ago.. Historical: - Allergies: 07:46 No Known Allergies; ss - Home Meds: 07:46 Insulin [Active]; ss - PMHx: 07:46 Diabetes - IDDM; ss - PSHx: 07:46 Appendectomy; ss - Immunization history:: Adult Immunizations up to date. - Infectious Disease History:: Denies. - Social history:: Smoking status: Patient denies any tobacco usage or history of. - Family history:: not pertinent. - Hospitalizations: : No recent hospitalization is reported. ROS: 08:40 Constitutional: Negative for fever, chills, and weight loss, MS/Extremity: Positive for rn pain and swelling to the left ring finger Neuro: Negative for weakness, numbness, tingling Exam: 08:40 Constitutional: This is a well developed, well nourished patient who is awake, alert, rn and in no acute distress. MS/ Extremity: Pulses equal, no cyanosis. Neurovascular intact. Left ring finger with erythema around ring, foul smell, no fluctuance, unable to get ring off with significant swelling of the PIP. Vital Signs: 07:45 BP 164 / 83; Pulse 90; Resp 16; Temp 97.6(O); Pulse Ox 97% on R/A; Weight 90.72 kg; ss Height 6 ft. 0 in. ; Pain 9/10; 08:57 BP 155 / 79; Pulse 89; Resp 16; Pulse Ox 97% ; bp 07:45 Body Mass Index 27.12 (90.72 kg, 182.88 cm) ss 07:45 Pain Scale: Adult ss Procedures: 08:40 Foreign Body Removal: a ring, from the left Ring finger, by Ring cutter and pliers. rn Dressinx4s were used to dress the wound, The patient tolerated the removal well. Nerve block: (digital) of palmar aspect of proximal phalanx of left ring finger Medication: Lidocaine 1% without epinephrine Amount: 2 mls were injected, Set up for procedure. Performed by Gonzalez Flynn MD Patient tolerated well. MDM: 07:36 Medical Screening Exam initiated rn 08:40 Differential diagnosis: Thermal burn, ring stuck on finger, cellulitis. Data reviewed: rn vital signs, nurses notes, and as a result, I will discharge patient. Counseling: I had a detailed discussion with the patient and/or guardian regarding the historical points, exam findings, and any diagnostic results supporting the discharge/admit diagnosis, the need for outpatient follow up, to return to the emergency department if symptoms worsen or persist or if there are any questions or concerns that arise at home. Response to treatment: the patient's symptoms have markedly improved after treatment, and as a result, I will discharge patient. Special discussion: I discussed with the patient/guardian in detail that at this point there is no indication for admission to the hospital. It is understood, however, that if the symptoms persist or worsen the patient needs to return immediately for re-evaluation. Administered Medications: 08:05 Drug: Lidocaine Infiltration (1 %) 1 vials 5 ml Infiltration once; to bedside Volume: 5 bp ml; Route: Infiltration; Disposition Summary: 02/01/25 08:46 Discharge Ordered Notes: Location: Home rn Problem: new rn Symptoms: have improved rn Condition: Stable rn Diagnosis - Thermal burn to left ring finger rn - Encounter for removal of ring rn - Cellulitis of finger rn Followup: rn - With: Private Physician - When: As needed - Reason: Recheck today's complaints, Re-evaluation by your physician Discharge Instructions: - Discharge Summary Sheet bd - Cellulitis, Adult rn - Wound Care, Adult rn Forms: - Work release form bd - Medication Reconciliation Form rn - Antibiotic pattern ruler - Prescription Opioid Use rn - Patient Portal Instructions rn - Leadership Thank You Letter rn Prescriptions: - Tramadol 50 mg Oral Tablet - take 1 tablet ORAL route every 8 hours as needed; 12 tablet; Refills: 0, rn Product Selection Permitted - Bactrim DS 800-160 mg Oral Tablet - take 1 tablet ORAL route every 12 hours for 10 days; 20 tablet; Refills: 0, rn Product Selection Permitted Signatures: Gonzalez Flynn MD MD rn Blanchard, Shelby, RN RN ss Peltier, Brian, RN RN bp Corrections: (The following items were deleted from the chart) 08:40 08:40 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 Reports increased swelling and unable to remove ring. Reports pain but no discoloration or cyanosis.. rn
--- NOTE | 2025-02-01 08:46 | ER ---
Nurse's Notes [facility] Name: John Slater Age: 59 yrs Sex: Male : 1965 Arrival Date: 02/01/2025 Time: 07:32 Bed 7 Private MD: Diagnosis: Thermal burn to left ring finger;Encounter for removal of ring;Cellulitis of finger Presentation: 02/01 07:45 Chief complaint: Patient states: ring stuck on L 4th finger since Saturday. Pt reports ss pain 01/20. Coronavirus screen: Client denies travel out of the [place] in the last 14 days. Ebola Screen: Patient denies exposure to infectious person. Patient denies travel to an Ebola-affected area in the 21 days before illness onset. Initial Sepsis Screen: Does the patient meet any 2 criteria? No. Patient's initial sepsis screen is negative. Does the patient have a suspected source of infection? No. Patient's initial sepsis screen is negative. Risk Assessment: Do you want to hurt yourself or someone else? Patient reports no desire to harm self or others. Onset of symptoms was January 29, 2025. 07:45 Method Of Arrival: Ambulatory ss 07:45 Acuity: [place] 4 ss Triage Assessment: 07:45 General: Appears in no apparent distress. uncomfortable, Behavior is calm, cooperative, bp appropriate for age. Pain: Complains of pain in palmar aspect of proximal phalanx of left ring finger. EENT: No deficits noted. Neuro: No deficits noted. Cardiovascular: No deficits noted. Respiratory: No deficits noted. GI: No signs and/or symptoms were reported involving the gastrointestinal system. : No signs and/or symptoms were reported regarding the genitourinary system. Derm: No deficits noted. Musculoskeletal: No deficits noted. Injury Description: EMBEDDED WEDDING RING. Historical: - Allergies: 07:46 No Known Allergies; ss - Home Meds: 07:46 Insulin [Active]; ss - PMHx: 07:46 Diabetes - IDDM; ss - PSHx: 07:46 Appendectomy; ss - Immunization history:: Adult Immunizations up to date. - Infectious Disease History:: Denies. - Social history:: Smoking status: Patient denies any tobacco usage or history of. - Family history:: not pertinent. - Hospitalizations: : No recent hospitalization is reported. Screenin:45 [facility] ED Fall Risk Assessment (Adult) History of falling in the last 3 months, bp including since admission No falls in past 3 months (0 pts) Confusion or Disorientation No (0 pts) Intoxicated or Sedated No (0 pts) Impaired Gait No (0 pts) Mobility Assist Device Used No (0 pt) Altered Elimination No (0 pt) Score/Fall Risk Level 0 - 2 = Low Risk Oriented to surroundings. Abuse screen: Denies threats or abuse. Denies injuries from another. Nutritional screening: No deficits noted. Tuberculosis screening: No symptoms or risk factors identified. Assessment: 07:45 General: SEE TRIAGE NOTE. bp Vital Signs: 07:45 BP 164 / 83; Pulse 90; Resp 16; Temp 97.6(O); Pulse Ox 97% on R/A; Weight 90.72 kg; ss Height 6 ft. 0 in. ; Pain 9/10; 08:57 BP 155 / 79; Pulse 89; Resp 16; Pulse Ox 97% ; bp 07:45 Body Mass Index 27.12 (90.72 kg, 182.88 cm) ss 07:45 Pain Scale: Adult ss ED Course: 07:36 Patient arrived in ED. im 07:36 Gonzalez Flynn MD is Attending Physician. rn 07:45 Patient has correct armband on for positive identification. bp 07:45 Assisted provider with: WEDDING RING REMOVAL. bp 07:46 Triage completed. ss 07:46 Arm band placed on right wrist. ss 08:05 Remy Espinoza, RN is Primary Nurse. bp 08:47 Patient did not have IV access during this emergency room visit. bp Administered Medications: 08:05 Drug: Lidocaine Infiltration (1 %) 1 vials 5 ml Infiltration once; to bedside Volume: 5 bp ml; Route: Infiltration; Medication: 07:45 VIS not applicable for this client. bp Outcome: 08:46 Discharge ordered by . rn 08:47 Discharged to home ambulatory, bp 08:47 Condition: stable 08:47 Discharge instructions given to patient, Instructed on discharge instructions, follow up and referral plans. wound care, Demonstrated understanding of instructions, follow-up care, wound care, Prescriptions given X 1, 09:01 Patient left the ED. bp Signatures: Gonzalez Flynn MD MD rn Blanchard, Shelby, RN RN Remy Espinoza RN RN Jasbir Rosaleszel im
[2025-02-02 05:33] VITALS: BP 155/79; TEMP 97.6; O2SAT 97
== END 2025-02-01 09:01 | disposition home or self-care (01) ==
LOC: ER 07:32
DX: T23.222A Burn of second degree of single left finger (nail) except thumb, initial encounter (principal); L03.012 Cellulitis of left finger; W49.04XA Ring or other jewelry causing external constriction, initial encounter
CPT/HCPCS: 64450; 99283